=== PATIENT | male | born 1970 | race Caucasian/White ===

== ENCOUNTER 2022-05-14 17:57 | Emergency (ER) | payer OTHER, SELFPAY ==
--- OUTSIDE RECORDS SUMMARY | 2022-05-14 17:59 | XMS REPORT | Continuity of Care Document ---
:1970 Author Organization [facility] t Address [address] Ol[place] [address] [place] [id number] Care Team Providers Name Role Phone jaime Attending Clinician Unavailable jaime Admitting Clinician Unavailable Payers Payer Name Policy Type Policy Number Effective Date Expiration Date Nathan SALEH CROSS BLUE [id number] SHIELD - [facility] PPI [id number] 2015 INSURANCE COMPANY 00:00:00 - [employer] (INDEMNITY) Problems This patient has no known problems. Allergies, Adverse Reactions, Alerts Allergy Allergy Status Severity Reaction(s) Onset Inactive Treating Comm ents Source Name Type Date Date Clinician No Known MA Active UNKNOWN [facility] [place] [facility] Medications This patient has no known medications. Procedures This patient has no known procedures. Encounters Start End Encounter Admission Attending Care Care Encounter Source Date/Time Date/Time Type Type Clinicians Facility Department ID 2022-03-09 Outpatient ELROBERTOPO JOSEPO [id number] El 14:42:08 [id number] [facility] [place] [facility] 2020-07-08 2020-07-08 [facility] [id number] 02:19:00 02:19:00 [facility] Results This patient has no known results.
[2022-05-14] MEDS ORDERED: ONDANSETRON 4 MG/2 ML VIAL ONE ×2 (18:12→18:25)
[2022-05-14] MEDS ORDERED: MORPHINE 4 MG/ML SYR ONE ×3 (18:12→20:07)
[2022-05-14] MEDS ORDERED: NA CHLORIDE 0.9% 0 ML ONE (18:13)
[2022-05-14] MEDS ORDERED: NA CHLORIDE 0.9% 1,000 ML ONE (18:25)
[2022-05-14 18:29] LABS: Absolute Lymphocytes (CBC) 1.4 K/uL (0.7-4.9); Hematocrit 46.2 % (39.6-49.0); Lymphocytes % 9.6 % (15.3-44.8); MCV 103.3 fL (80-100); MPV 7.6 fL (7.6-11.3); RBC Red Blood Cell Count 4.47 M/uL (4.33-5.43)
[2022-05-14 18:36] LABS: ALT/SGPT 26 U/L (12-78); AST/SGOT 95 U/L (15-37); Alkaline Phosphatase 116 U/L (45-117); Bicarbonate 23 mmol/L (21-32); Glomerular Filtration Rate 118 ml/min (=/>90); Glucose Level 111 mg/dL (74-106); Lipase 200 U/L (73-393); Potassium 3.5 mmol/L (3.5-5.1); Protein, Total 7.5 g/dL (6.4-8.2); Sodium Level 133 mmol/L (136-145)
[2022-05-14 18:40] LABS: BUN Blood Urea Nitrogen < 3 mg/dL (7-18)
--- NOTE | 2022-05-14 19:20 | RAD REPORT ---
EXAM DESCRIPTION: CTAbdomen Pelvis W Contrast - 05/14/2022 6:54 pm CLINICAL HISTORY: Abdominal pain. abd pain COMPARISON: <Comparisons> TECHNIQUE: Biphasic CT imaging of the abdomen and pelvis was performed with 100 ml non-ionic IV cont rast. All CT scans are performed using dose optimization technique as appropriate and may include automated exposure control or mA/KV adjustment according to patient size. FINDINGS: The lung bases are clear. The liver appears enlarged with a diffuse fatty infiltration pattern present. Small supra umbilical v entral hernia is present containing fat and a small amount fluid. The liver is normal size. The pancr eas, adrenal glands and kidneys within normal limits. Mild ascites is evident. No bowel obstruction seen. No free air. The appendix is normal. No evidence of significant lymphadenopathy. No suspicious bony findings. IMPRESSION: Enlarged liver with diffuse fatty liver infiltration and heterogenous liver echotexture. Underlying hepatic dysfunction or chronic inflammation is possible. Mild ascites. Small supraumbilical ventral hernia.
--- NOTE | 2022-05-14 20:24 | RAD REPORT ---
EXAM DESCRIPTION: US - Abdomen Exam Limited - 05/14/2022 8:16 pm CLINICAL HISTORY: ABD PAIN COMPARISON: No comparisons FINDINGS: The gallbladder demonstrates no gallstones. No pericholecystic fluid or gallbladder wall t hickening. The common bile duct is normal measuring 4 mm. The liver demonstrates fatty liver. IMPRESSION: Fatty liver. Negative gallbladder/ biliary tree findings.
--- NOTE | 2022-05-14 20:53 | ER ---
Nurse's Notes [facility] Name: Omi Tyson Jr Age: 51 yrs Sex: Male : 1970 Arrival Date: 05/14/2022 Time: 18:00 Bed 18 Private MD: Diagnosis: Abdominal pain, Generalized Presentation: 05/14 18:04 Chief complaint: Patient states: lower abdominal pain for 1 week, woke up at 5am this mb8 morning c/o worsening abdominal pain, took laxatives today and had large BM. Coronavirus screen: Vaccine status: Patient reports receiving the 2nd dose of the covid vaccine. Ebola Screen: Patient negative for fever greater than or equal to 101.5 degrees Fahrenheit, and additional compatible Ebola Virus Disease symptoms Patient denies exposure to infectious person. Patient denies travel to an Ebola-affected area in the 21 days before illness onset. Initial Sepsis Screen: Does the patient meet any 2 criteria? No. Patient's initial sepsis screen is negative. Does the patient have a suspected source of infection? No. Patient's initial sepsis screen is negative. Risk Assessment: Do you want to hurt yourself or someone else? Patient reports no desire to harm self or others. 18:04 Method Of Arrival: EMS mb8 18:04 Acuity: NILTON 3 mb8 21:22 Onset of symptoms is unknown. ha1 21:22 Onset of symptoms. ha1 Triage Assessment: 18:06 General: Appears uncomfortable, Behavior is cooperative, appropriate for age, anxious. mb8 Pain: Complains of pain in abdomen Pain does not radiate. Pain currently is 8 out of 10 on a pain scale. at worst was 10 out of 10 on a pain scale. GI: Abdomen is distended, Abdomen is tender to palpation Guarding noted Reports lower abdominal pain. Historical: - Allergies: 18:05 No Known Allergies; mb8 - Immunization history:: Adult Immunizations up to date. - Social history:: Smoking status: Patient denies any tobacco usage or history of. Screenin:08 Abuse screen: Denies threats or abuse. Denies injuries from another. Nutritional mb8 screening: No deficits noted. Tuberculosis screening: No symptoms or risk factors identified. Fall Risk None identified. Assessment: 18:06 GI: Abdomen is distended, Abdomen is tender to palpation Reports lower abdominal pain. mb8 19:36 General: Appears uncomfortable, Behavior is cooperative. Pain: Complains of pain in ha1 abdomen. Neuro: Level of Consciousness is awake, alert, Oriented to person, place, time, situation. Cardiovascular: Capillary refill < 3 seconds Patient's skin is warm and dry. Respiratory: Airway is patent Trachea midline Respiratory effort is even, unlabored, Respiratory pattern is regular, symmetrical. 20:30 Reassessment: Patient and/or family updated on plan of care and expected duration. Pain ha1 level reassessed. Patient is alert, oriented x 3, equal unlabored respirations, skin warm/dry/pink. Patient states feeling better. Vital Signs: 18:04 BP 151 / 102; Pulse 91; Resp 20; Pulse Ox 97% ; Pain 8/10; mb8 18:30 BP 133 / 79; Pulse 81; Resp 18; Pulse Ox 99% ; Pain 6/10; mb8 19:35 BP 143 / 84; Pulse 93; Resp 19 S; Pulse Ox 97% on R/A; ha1 20:30 BP 126 / 95; Pulse 95; Resp 18 S; Pulse Ox 98% on R/A; ha1 ED Course: 18:00 Patient arrived in ED. eb 18:00 Yumiko Philip FNP-C is [facility]. kb 18:00 Dangelo Valenzuela MD is Attending Physician. kb 18:03 Kashif Mishra, LISE is Primary Nurse. mb8 18:05 Triage completed. mb8 18:06 Arm band placed on. mb8 18:08 Patient has correct armband on for positive identification. Bed in low position. Call mb8 light in reach. Side rails up X2. Client placed on continuous cardiac and pulse oximetry monitoring. NIBP monitoring applied. 18:08 No provider procedures requiring assistance completed. mb8 18:56 CT Abd/Pelvis - IV Contrast Only In Process Unspecified. EDMS 20:18 US Abdomen Limited In Process Unspecified. EDMS 21:22 IV discontinued, intact, bleeding controlled, No redness/swelling at site. Pressure ha1 dressing applied. Administered Medications: 18:22 Drug: NS 0.9% 1000 ml Route: IV; Rate: 1 bolus; Site: left forearm; mb8 21:23 Follow up: Response: No adverse reaction; IV Status: Completed infusion; IV Intake: ha1 500ml 18:22 Drug: Zofran (Ondansetron) 4 mg Route: IVP; Site: left forearm; mb8 18:40 Follow up: Response: No adverse reaction mb8 18:22 Drug: morphine 4 mg Route: IVP; Infused Over: 4 mins; Site: left forearm; mb8 18:40 Follow up: Response: No adverse reaction; Pain is unchanged, physician notified mb8 20:00 Drug: morphine 4 mg Route: IVP; Infused Over: 4 mins; Site: left antecubital; ha1 20:30 Follow up: Response: No adverse reaction; Pain is decreased; RASS: Alert and Calm (0) ha1 Medication: 18:07 VIS not applicable for this client. mb8 Intake: 21:23 IV: 500ml; Total: 500ml. ha1 Outcome: 20:52 Discharge ordered by . kb 21:21 Patient left the ED. ha1 21:21 Discharged to home ambulatory. ha1 21:21 Condition: stable 21:21 Discharge instructions given to patient, Instructed on discharge instructions, follow up and referral plans. Demonstrated understanding of instructions, follow-up care. Signatures: Dispatcher [employer] EDYumiko Sommer, ADVISOR CONSULTANT-C ADVISOR CONSULTANT-Ckb Rosibel Barton Heidy RN RN ha1 Kashif Mishra RN RN mb8
--- NOTE | 2022-05-14 20:53 | EDPHYS ---
Physician Documentation [facility] Name: Omi Tyson Jr Age: 51 yrs Sex: Male : 1970 Arrival Date: 05/14/2022 Time: 18:00 Bed 18 Private MD: ED Physician Dangelo Valenzuela HPI: 05/14 20:43 This 51 yrs old Male presents to ER via EMS with complaints of lower abdominal pain. kb 20:43 The patient presents with abdominal pain in the left lower quadrant. The symptoms do kb not radiate. 20:43 Onset: The symptoms/episode began/occurred 1 week(s) ago. Associated signs and kb symptoms: Pertinent positives: diarrhea. The symptoms are described as constant. Modifying factors: The symptoms are alleviated by nothing, the symptoms are aggravated by pressure. Severity of pain: At its worst the pain was moderate in the emergency department the pain is unchanged. The patient has not experienced similar symptoms in the past. The patient has not recently seen a physician. 20:44 Pt reports LLQ pain for a week. Reports diarrhea approx 45 minutes to arrival. kb Historical: - Allergies: 18:05 No Known Allergies; mb8 - Immunization history:: Adult Immunizations up to date. - Social history:: Smoking status: Patient denies any tobacco usage or history of. ROS: 20:43 Constitutional: Negative for fever, chills, and weight loss. kb 20:43 Abdomen/GI: Positive for abdominal pain, diarrhea, abdominal distension. 20:43 All other systems are negative. Exam: 20:43 Constitutional: This is a well developed, well nourished patient who is awake, alert, kb and in no acute distress. Head/Face: Normocephalic, atraumatic. ENT: Moist Mucous membranes Cardiovascular: Regular rate and rhythm with a normal S1 and S2. No gallops, murmurs, or rubs. No pulse deficits. Respiratory: Respirations even and unlabored. No increased work of breathing. Talking in full sentences Skin: Warm, dry with normal turgor. Normal color. MS/ Extremity: Pulses equal, no cyanosis. Neurovascular intact. Full, normal range of motion. Neuro: Awake and alert, GCS 15, oriented to person, place, time, and situation. Moves all extremities. Normal gait. Psych: Awake, alert, with orientation to person, place and time. Behavior, mood, and affect are within normal limits. 20:43 Abdomen/GI: Inspection: distension, that is mild, in the abdomen diffusely, Bowel sounds: normal, Palpation: soft, in all quadrants, moderate abdominal tenderness, in all quadrants. Vital Signs: 18:04 BP 151 / 102; Pulse 91; Resp 20; Pulse Ox 97% ; Pain 8/10; mb8 18:30 BP 133 / 79; Pulse 81; Resp 18; Pulse Ox 99% ; Pain 6/10; mb8 19:35 BP 143 / 84; Pulse 93; Resp 19 S; Pulse Ox 97% on R/A; ha1 20:30 BP 126 / 95; Pulse 95; Resp 18 S; Pulse Ox 98% on R/A; ha1 MDM: 18:00 Patient medically screened. kb 20:44 Data reviewed: vital signs, nurses notes. Data interpreted: Pulse oximetry: on room air kb is 97 %. Interpretation: normal. 20:51 Data reviewed: I have discussed the patient's presentation/case with the attending Emergency Department Physician;. Counseling: I had a detailed discussion with the patient and/or guardian regarding: the historical points, exam findings, and any diagnostic results supporting the discharge/admit diagnosis, lab results, radiology results, the need for outpatient follow up, a family practitioner, a diet clerk, to return to the emergency department if symptoms worsen or persist or if there are any questions or concerns that arise at home. 05/14 18:01 Order name: CBC with Diff; Complete Time: 18:31 kb 05/14 18:01 Order name: CMP; Complete Time: 18:42 kb 05/14 18:01 Order name: Lipase; Complete Time: 18:42 kb 05/14 18:01 Order name: CT Abd/Pelvis - IV Contrast Only; Complete Time: 19:29 kb 05/14 19:30 Order name: US Abdomen Limited; Complete Time: 20:28 kb 05/14 18:01 Order name: IV Saline Lock; Complete Time: 18:13 kb 05/14 18:01 Order name: Labs collected and sent; Complete Time: 18:13 kb Administered Medications: 18:22 Drug: NS 0.9% 1000 ml Route: IV; Rate: 1 bolus; Site: left forearm; mb8 21:23 Follow up: Response: No adverse reaction; IV Status: Completed infusion; IV Intake: ha1 500ml 18:22 Drug: Zofran (Ondansetron) 4 mg Route: IVP; Site: left forearm; mb8 18:40 Follow up: Response: No adverse reaction 8 18:22 Drug: morphine 4 mg Route: IVP; Infused Over: 4 mins; Site: left forearm; mb8 18:40 Follow up: Response: No adverse reaction; Pain is unchanged, physician notified mb8 20:00 Drug: morphine 4 mg Route: IVP; Infused Over: 4 mins; Site: left antecubital; ha1 20:30 Follow up: Response: No adverse reaction; Pain is decreased; RASS: Alert and Calm (0) ha1 Disposition: 05/15 07:03 Co-signature as Attending Physician, Dangelo Valenzuela MD. rn Disposition Summary: 05/14/22 20:52 Discharge Ordered Location: Home kb Condition: Stable kb Diagnosis - Abdominal pain, Generalized kb Followup: kb - With: Emergency Department - When: As needed - Reason: Worsening of condition Followup: kb - With: Private Physician - When: 2 - 3 days - Reason: Recheck today's complaints, Continuance of care, Re-evaluation by your physician Discharge Instructions: - Discharge Summary Sheet kb - Abdominal Pain, Adult, [id number] kb Forms: - Medication Reconciliation Form kb - Thank You Letter kb - Antibiotic Education kb - Prescription Opioid Use kb Signatures: Dispatcher [employer] Yumiko Rojas, DESIGN MAINTENANCE ENGINEER-C DESIGN MAINTENANCE ENGINEER-Dangelo Davila MD MD rn Ayala, Heidy RN RN ha1 Kashif Mishra RN RN mb8
[2022-05-16 07:56] VITALS: BP 126/95; O2SAT 98
== END 2022-05-14 21:21 | disposition home or self-care (01) ==
LOC: ER 17:57
DX: R10.84 Generalized abdominal pain (principal)
CPT/HCPCS: 36415; 74177; 76705; 80053; 83690; 85025; 99284; J2405; J7030; Q9967

== ENCOUNTER 2022-05-17 12:22 | Observation (INO) | payer SELFPAY ==
--- OUTSIDE RECORDS SUMMARY | 2022-05-17 12:35 | XMS REPORT | Continuity of Care Document ---
:1970 Author Organization [facility] Address [address] [place] [address] [place] [id number] Care Team Providers Name Role Phone jaime Attending Clinician Unavailable jaime Admitting Clinician Unavailable Payers Payer Name Policy Type Policy Number Effective Date Expiration Date Nathan SALEH CROSS DELFINO [id number] SHIELD - [facility] [id number] 2015 INSURANCE COMPANY 00:00:00 - [employer] (INDEMNITY) Problems This patient has no known problems. Allergies, Adverse Reactions, Alerts Allergy Allergy Status Severity Reaction(s) Onset Inactive Treating Comm ents Source Name Type Date Date Clinician No Known MA Active UNKNOWN El [facility] [place] [facility] Medications This patient has no known medications. Procedures This patient has no known procedures. Encounters Start End Encounter Admission Attending Care Care Encounter Source Date/Time Date/Time Type Type Clinicians Facility Department ID 2022-03-09 Outpatient ELROBERTOPO ALMAS [id number] El 14:42:08 [id number] [place] [facility] 2020-07-08 2020-07-08 Outpatient jaime [facility] [id number] 02:19:00 02:19:00 [facility] Results This patient has no known results.
[2022-05-17 13:42] LABS: Absolute Lymphocytes (CBC) 1.2 K/uL (0.7-4.9); Hematocrit 49.1 % (39.6-49.0); Lymphocytes % 11.3 % (15.3-44.8); MCV 103.6 fL (80-100); MPV 7.5 fL (7.6-11.3); RBC Red Blood Cell Count 4.74 M/uL (4.33-5.43)
[2022-05-17 13:49] LABS: Urine Blood Negative (Negative); Urine Glucose Negative (Negative); Urine Protein Trace (Negative)
[2022-05-17 13:50] LABS: Protime INR 1.38
[2022-05-17 13:53] LABS: SARS-CoV-2 Antigen Rapid Res Negative (Negative)
[2022-05-17] MEDS ORDERED: ONDANSETRON 4 MG/2 ML VIAL ONE (13:59)
[2022-05-17] MEDS ORDERED: METRONIDAZOLE 500mg IVPB 500 MG/100 ML BAG IV ONE (13:59)
[2022-05-17] MEDS ORDERED: MORPHINE 4 MG/ML SYR ONE (13:59)
[2022-05-17] MEDS ORDERED: Levofloxacin 750mg IV 750 MG/150 ML BAG IV ONE (13:59)
[2022-05-17] MEDS ORDERED: NA CHLORIDE 0.9% 1,000 ML ONE (14:00)
[2022-05-17 14:08] LABS: Bilirubin Direct 0.7 mg/dL (0-0.2); Bilirubin Total 1.7 mg/dL (0.2-1.0); Potassium 3.6 mmol/L (3.5-5.1); Protein, Total 7.6 g/dL (6.4-8.2); Troponin High Sensitivity 4.4 pg/mL (<58.9)
--- NOTE | 2022-05-17 14:39 | RAD REPORT ---
EXAM DESCRIPTION: CT - Abdomen Pelvis W Contrast - 05/17/2022 2:14 pm CLINICAL HISTORY: Abdominal pain/left upper quadrant pain COMPARISON: May 14, 2022 TECHNIQUE: Computed axial tomography of the abdomen pelvis was obtained. 100 cc Isovue-300 was admin istered intravenously. Oral contrast was not requested which limits evaluation of bowel and appendix All CT scans are performed using dose optimization technique as appropriate and may include automated exposure control or mA/KV adjustment according to patient size. FINDINGS: Liver is mildly enlarged. It contains heterogeneous low density areas throughout. Spleen is borderline enlarged. The pancreas, adrenals and kidneys are unremarkable. Small to moderate ventral hernia mid abdomen. Small umbilical hernia. There is no evidence of diverticulitis. Normal appendix Small amount of ascites abdomen. Small to moderate amount of ascites pelvis. 3 x 1.5 centimeter perirectal abscess IMPRESSION: 3 x 1.5 centimeter perirectal abscess Mild hepatomegaly. Heterogeneous low densities may all represent fatty infiltration. Superimposed inf lammation is another consideration
--- NOTE | 2022-05-17 14:59 | ER ---
Nurse's Notes [facility] Name: Omi Tyson Jr Age: 51 yrs Sex: Male : 1970 Arrival Date: 05/17/2022 Time: 12:24 Bed 25 Private MD: Diagnosis: Anorectal abscess-WITH BUTTOCK RIGHT , CELLULITIS Presentation: 05/17 12:42 Chief complaint: Patient states: "I have an abscess on my rectum and it's hurting". aa5 Coronavirus screen: At this time, the client does not indicate any symptoms associated with coronavirus-19. Ebola Screen: Patient denies travel to an Ebola-affected area in the 21 days before illness onset. Initial Sepsis Screen: Does the patient meet any 2 criteria? No. Patient's initial sepsis screen is negative. Does the patient have a suspected source of infection? No. Patient's initial sepsis screen is negative. Risk Assessment: Do you want to hurt yourself or someone else? Patient reports no desire to harm self or others. Onset of symptoms was April 2022. 12:42 Acuity: NILTON 3 aa5 12:42 Method Of Arrival: Ambulatory aa5 Triage Assessment: 13:39 General: Appears in no apparent distress. Behavior is calm, cooperative, appropriate jh5 for age. Pain: Complains of pain in buttocks. Historical: - Allergies: 12:41 No Known Allergies; aa5 - Home Meds: 12:41 None [Active]; aa5 - PMHx: 12:41 None; aa5 - PSHx: 12:41 Left knee; aa5 - Immunization history:: Adult Immunizations unknown. - Social history:: Smoking status: Patient reports the use of cigarette tobacco products, smokes one-half pack cigarettes per day. - Family history:: not pertinent. Screenin:39 Abuse screen: Denies threats or abuse. Denies injuries from another. Nutritional jh5 screening: No deficits noted. Tuberculosis screening: No symptoms or risk factors identified. Fall Risk None identified. Assessment: 14:13 Reassessment: Pt refused Chest Xray; states he was here 2 days ago and is here for a jh5 rectal abscess. Vital Signs: 12:42 BP 137 / 87; Pulse 77; Resp 18 S; Temp 98.4(TE); Pulse Ox 100% on R/A; Weight 81.65 kg 5 (R); Height 5 ft. 11 in. (180.34 cm) (R); 14:36 BP 131 / 80; Pulse 71; Resp 18; Pulse Ox 100% ; jh5 12:42 Body Mass Index 25.10 (81.65 kg, 180.34 cm) [facility] ED Course: 12:24 Patient arrived in ED. mr 12:41 Arm band placed on. 5 12:43 Triage completed. [facility] 12:53 Mayco Hathaway MD is Attending Physician. [facility] 12:55 Roma Diaz, LISE is Primary Nurse. [facility] 13:34 Initial lab(s) drawn, by wv, sent to lab. COVID swab sent to lab. Inserted saline lock: tm3 20 gauge in left antecubital area, using aseptic technique. 13:39 Patient has correct armband on for positive identification. [facility] 13:39 No provider procedures requiring assistance completed. [facility] 13:48 Urine collected: clean catch specimen, cloudy. [facility] 14:16 CT Abd/Pelvis - IV Contrast Only In Process Unspecified. EDFL 14:55 Harrisno Ramírez MD is Hospitalizing Provider. tiffanie Administered Medications: 13:00 Drug: NS 0.9% 1000 ml Route: IV; Rate: 1 bolus; Site: left antecubital; [facility] 16:47 Follow up: IV Status: Completed infusion [facility] 13:00 Drug: morphine 4 mg Route: IVP; Infused Over: 4 mins; Site: left antecubital; [facility] 13:00 Drug: Zofran (Ondansetron) 4 mg Route: IVP; Site: left antecubital; [facility] 15:41 Drug: levofloxacin 750 mg Volume: 150 ml; Route: IVPB; Infused Over: 90 mins; Site: [facility] left antecubital; 16:46 Follow up: IV Status: Completed infusion [facility] 15:41 Drug: Flagyl (metroNIDAZOLE) 500 mg Volume: 100 ml; Route: IVPB; Rate: 200 ml/hr; [facility] Infused Over: 30 mins; Site: left antecubital; 15:49 Follow up: IV Status: Completed infusion [facility] Medication: 14:14 VIS not applicable for this client. [facility] Outcome: 14:57 Decision to Hospitalize by Provider. [facility] 16:48 Patient left the ED. [facility] Signatures: Dispatcher [employer] EDBoone Bailey tm3 Mayco Hathaway MD MD cha Rivera Nelli mr Radha Jones RN RN aa5 Roma Diaz RN RN jh5 Corrections: (The following items were deleted from the chart) 12: Allergies: No Known Allergies; aa5 aa5 12: PSHx: None; aa5 aa5 12: Allergies: Tetanus Vaccines \\T\\ Toxoid; aa5 aa5
--- NOTE | 2022-05-17 14:59 | EDPHYS ---
Physician Documentation [facility] Name: Omi Tyson Jr Age: 51 yrs Sex: Male : 1970 Arrival Date: 05/17/2022 Time: 12:24 Bed 25 Private MD: ED Physician Mayco Hathaway HPI: 05/17 14:49 This 51 yrs old Male presents to ER via Ambulatory with complaints of Abscess.tiffanie 14:49 The patient presents with an abscess of the gluteal cleft, The patient presents with tiffanie cellulitis of the buttocks. Description: The affected area is small, moderate sized, localized, erythematous, fluctuant, pointed, swollen. Onset: The symptoms/episode began/occurred 5 day(s) ago. Possible cause(s): animal bite. Associated signs and symptoms: Pertinent positives: erythema, swelling. Modifying factors: the symptoms are alleviated by remaining still, the symptoms are aggravated by pressure, sitting, squeezing the lesion and expressing the contents. Severity of symptoms: At their worst the symptoms were mild, moderate, in the emergency department the symptoms are unchanged. The patient has not experienced similar symptoms in the past. Historical: - Allergies: 12:41 No Known Allergies; aa5 - Home Meds: 12:41 None [Active]; aa5 - PMHx: 12:41 None; aa5 - PSHx: 12:41 Left knee; aa5 - Immunization history:: Adult Immunizations unknown. - Social history:: Smoking status: Patient reports the use of cigarette tobacco products, smokes one-half pack cigarettes per day. - Family history:: not pertinent. ROS: 14:49 Constitutional: Negative for fever, chills, and weight loss, Eyes: Negative for injury, tiffanie pain, redness, and discharge, ENT: Negative for injury, pain, and discharge, Neck: Negative for injury, pain, and swelling, Cardiovascular: Negative for chest pain, palpitations, and edema, Respiratory: Negative for shortness of breath, cough, wheezing, and pleuritic chest pain, Abdomen/GI: Negative for abdominal pain, nausea, vomiting, diarrhea, and constipation, Back: Negative for injury and pain, : Negative for injury, bleeding, discharge, and swelling, MS/Extremity: Negative for injury and deformity, Neuro: Negative for headache, weakness, numbness, tingling, and seizure, Psych: Negative for depression, anxiety, suicide ideation, homicidal ideation, and hallucinations, Allergy/Immunology: Negative for hives, rash, and allergies, Endocrine: Negative for neck swelling, polydipsia, polyuria, polyphagia, and marked weight changes, Hematologic/Lymphatic: Negative for swollen nodes, abnormal bleeding, and unusual bruising. 14:49 Skin: Positive for erythema, swelling, of the gluteal cleft and right gluteus malini. Exam: 14:49 Constitutional: This is a well developed, well nourished patient who is awake, alert, tiffanie and in no acute distress. Head/Face: Normocephalic, atraumatic. Eyes: Pupils equal round and reactive to light, extra-ocular motions intact. Lids and lashes normal. Conjunctiva and sclera are non-icteric and not injected. Cornea within normal limits. Periorbital areas with no swelling, redness, or edema. ENT: Nares patent. No nasal discharge, no septal abnormalities noted. Tympanic membranes are normal and external auditory canals are clear. Oropharynx with no redness, swelling, or masses, exudates, or evidence of obstruction, uvula midline. Mucous membranes moist. Neck: Trachea midline, no thyromegaly or masses palpated, and no cervical lymphadenopathy. Supple, full range of motion without nuchal rigidity, or vertebral point tenderness. No Meningismus. Chest/axilla: Normal chest wall appearance and motion. Nontender with no deformity. No lesions are appreciated. Cardiovascular: Regular rate and rhythm with a normal S1 and S2. No gallops, murmurs, or rubs. Normal PMI, no JVD. No pulse deficits. Respiratory: Lungs have equal breath sounds bilaterally, clear to auscultation and percussion. No rales, rhonchi or wheezes noted. No increased work of breathing, no retractions or nasal flaring. Abdomen/GI: Soft, non-tender, with normal bowel sounds. No distension or tympany. No guarding or rebound. No evidence of tenderness throughout. Back: No spinal tenderness. No costovertebral tenderness. Full range of motion. Male : Normal genitalia with no discharge or lesions. MS/ Extremity: Pulses equal, no cyanosis. Neurovascular intact. Full, normal range of motion. Neuro: Awake and alert, GCS 15, oriented to person, place, time, and situation. Cranial nerves II-XII grossly intact. Motor strength 5/5 in all extremities. Sensory grossly intact. Cerebellar exam normal. Normal gait. Psych: Awake, alert, with orientation to person, place and time. Behavior, mood, and affect are within normal limits. 14:49 Skin: abscess, that is small, that is moderate sized, of the gluteal cleft and right gluteus malini, with fluctuance, that is moderate, with induration, cellulitis, that is mild, that is moderate, induration, that is moderate is noted. 15:07 ECG was reviewed by the Attending Physician. [facility] Vital Signs: 12:42 BP 137 / 87; Pulse 77; Resp 18 S; Temp 98.4(TE); Pulse Ox 100% on R/A; Weight 81.65 kg aa5 (R); Height 5 ft. 11 in. (180.34 cm) (R); 14:36 BP 131 / 80; Pulse 71; Resp 18; Pulse Ox 100% ; jh5 12:42 Body Mass Index 25.10 (81.65 kg, 180.34 cm) aa5 MDM: 12:53 Patient medically screened. [facility] 15:07 Differential diagnosis: abscess, cellulitis. Data reviewed: vital signs, nurses notes, [facility] lab test result(s), EKG, radiologic studies, CT scan, plain films. Data interpreted: site monitor: not applicable for this patient encounter. rate is 71 beats/min, rhythm is regular, Pulse oximetry: on room air is 100 %. Test interpretation: by ED physician or midlevel provider: ECG, plain radiologic studies. Counseling: I had a detailed discussion with the patient and/or guardian regarding: the historical points, exam findings, and any diagnostic results supporting the discharge/admit diagnosis, lab results, radiology results, the need for further work-up and treatment in the hospital. 05/17 12:57 Order name: Basic Metabolic Panel; Complete Time: 14:49 [facility] 05/17 12:57 Order name: CBC with Diff; Complete Time: 14:49 [facility] 05/17 12:57 Order name: LFT's; Complete Time: 14:49 [facility] 05/17 12:57 Order name: Magnesium; Complete Time: 14:49 [facility] 05/17 12:57 Order name: NT PRO-BNP; Complete Time: 14:49 [facility] 05/17 12:57 Order name: PT-INR; Complete Time: 14:49 [facility] 05/17 12:57 Order name: Troponin HS; Complete Time: 14:49 [facility] 05/17 12:57 Order name: Lipase; Complete Time: 14:49 [facility] 05/17 12:57 Order name: CT Abd/Pelvis - IV Contrast Only; Complete Time: 14:49 [facility] 05/17 12:57 Order name: SARS RAPID; Complete Time: 14:49 [facility] 05/17 13:50 Order name: Urine Dipstick-Ancillary; Complete Time: 14:49 EDMS 05/17 12:57 Order name: EKG; Complete Time: 12:58 [facility] 05/17 12:57 Order name: Cardiac monitoring; Complete Time: 13:17 [facility] 05/17 12:57 Order name: EKG - Nurse/Tech; Complete Time: 13:31 [facility] 05/17 12:57 Order name: IV Saline Lock; Complete Time: 13:17 [facility] 05/17 12:57 Order name: Labs collected and sent; Complete Time: 13:17 [facility] 05/17 12:57 Order name: O2 Per Protocol; Complete Time: 13:49 [facility] 05/17 12:57 Order name: O2 Sat Monitoring; Complete Time: 13:17 [facility] 05/17 12:57 Order name: Urine Dipstick-Ancillary (obtain specimen); Complete Time: 13:49 [facility] EC:07 Rate is 76 beats/min. Rhythm is regular. QRS [place] is Normal. MO interval is normal. QRS tiffanie interval is normal. QT interval is normal. No Q waves. T waves are Normal. No ST changes noted. Clinical impression: Normal ECG and No evidence of ischemia. Interpreted by me. Reviewed by me. Administered Medications: 13:00 Drug: NS 0.9% 1000 ml Route: IV; Rate: 1 bolus; Site: left antecubital; [facility] 16:47 Follow up: IV Status: Completed infusion [facility] 13:00 Drug: morphine 4 mg Route: IVP; Infused Over: 4 mins; Site: left antecubital; [facility] 13:00 Drug: Zofran (Ondansetron) 4 mg Route: IVP; Site: left antecubital; [facility] 15:41 Drug: levofloxacin 750 mg Volume: 150 ml; Route: IVPB; Infused Over: 90 mins; Site: [facility] left antecubital; 16:46 Follow up: IV Status: Completed infusion jh5 15:41 Drug: Flagyl (metroNIDAZOLE) 500 mg Volume: 100 ml; Route: IVPB; Rate: 200 ml/hr; jh5 Infused Over: 30 mins; Site: left antecubital; 15:49 Follow up: IV Status: Completed infusion jh5 Disposition Summary: 05/17/22 14:57 Hospitalization Ordered Hospitalization Status: Observation tiffanie Provider: Harrison Ramírez cha Location: Telemetry/MedSurg (observation) tiffanie Condition: Fair tiffanie Problem: new tiffanie Symptoms: have improved tiffanie Bed/Room Type: Standard tiffanie Room Assignment: 418(05/17/22 15:20) bd Diagnosis - Anorectal abscess - WITH BUTTOCK RIGHT , CELLULITIS tiffanie Forms: - Medication Reconciliation Form tiffanie - SBAR form tiffanie Signatures: Dispatcher [employer] EDLaura Michael Corey, MD MD cha Calderon, Audri, RN RN aa5 Roma Diaz RN RN jh5 Corrections: (The following items were deleted from the chart) 12:41 12:41 Allergies: No Known Allergies; aa5 aa5 12:41 12:41 PSHx: None; aa5 aa5 12:41 12:41 Allergies: Tetanus Vaccines \T\ Toxoid; aa5 aa5 14:12 12:58 Chest Single View+RAD.RAD.BRZ ordered. EDMS EDMS 15:20 14:57 tiffanie bd
[2022-05-17 16:58] VITALS: BMI 25.1
[2022-05-17] MEDS ORDERED: ONDANSETRON 4 MG/2 ML VIAL IV PRN (16:58)
[2022-05-17] MEDS ORDERED: ACETAMINOPHEN 325 MG TABLET PO PRN (17:14)
[2022-05-17] MEDS: NA CHLORIDE 0.9% 1,000 ML IV SCH (17:22)
[2022-05-17] MEDS: METRONIDAZOLE 500mg IVPB 500 MG/100 ML BAG IV SCH (17:23)
[2022-05-17] MEDS: MORPHINE 4 MG/ML SYR IV PRN ×2 (17:27→21:06)
[2022-05-17] MEDS ORDERED: Levofloxacin 750mg IV 750 MG/150 ML BAG IV SCH (18:00)
[2022-05-18] MEDS: METRONIDAZOLE 500mg IVPB 500 MG/100 ML BAG IV SCH ×2 (01:02→05:28)
[2022-05-18] MEDS: MORPHINE 4 MG/ML SYR IV PRN ×2 (01:09→05:27)
[2022-05-18] MEDS: NA CHLORIDE 0.9% 1,000 ML IV SCH (01:10)
[2022-05-18 05:41] LABS: Absolute Lymphocytes (CBC) 1.6 K/uL (0.7-4.9); Hematocrit 41.3 % (39.6-49.0); Lymphocytes % 14.5 % (15.3-44.8); MCV 104.4 fL (80-100); MPV 7.7 fL (7.6-11.3); RBC Red Blood Cell Count 3.96 M/uL (4.33-5.43)
[2022-05-18 05:57] LABS: Bicarbonate 27 mmol/L (21-32); Glomerular Filtration Rate 121 ml/min (=/>90); Glucose Level 95 mg/dL (74-106); Potassium 3.8 mmol/L (3.5-5.1); Sodium Level 137 mmol/L (136-145)
[2022-05-18 05:58] LABS: BUN Blood Urea Nitrogen < 3 mg/dL (7-18)
[2022-05-18] MEDS ORDERED: Ringers Lactate 1,000 ML IV ONE (08:50)
[2022-05-18] MEDS: FENTANYL CITR 100 MCG/2 ML ONE ×2 (09:36→09:49)
[2022-05-18] MEDS ORDERED: MIDAZOLAM HCL 2 MG/2 ML INJ ONE (09:45)
[2022-05-18] MEDS ORDERED: propofoL 200 MG/20 ML VIAL IV ONE (09:46)
[2022-05-18] MEDS ORDERED: KETOROLAC 30 MG/ML INJ ONE (09:46)
[2022-05-18] MEDS ORDERED: dexAMETHasone 10 MG/ML VIAL ONE (09:49)
[2022-05-18] MEDS ORDERED: BUPIVACAINE 0.5% PF 10 ML VIAL ONE (09:55)
--- NOTE | 2022-05-18 10:37 | P.BOP ---
Preoperative diagnosis: perirectal abscess, perianal pain Postoperative diagnosis: same Primary procedure: EUA, anoscopy, rigid proctoscopy, I&D perirectal abscess Estimated blood loss: <10cc Specimen: pus Findings: see dicta Anesthesia: General Complications: None Transferred to: Recovery Room Condition: Good
[2022-05-18] MEDS ORDERED: HYDROCODONE/APAP 5/325 MG TAB PO PRN (10:38)
[2022-05-18 11:06] VITALS: TEMP 97.9; O2SAT 98
[2022-05-18 12:44] VITALS: BP 120/72
--- NOTE | 2022-05-18 13:08 | EKG ---
Test Date: 2022-05-17 Test Time: 13:26:25 [employer] Adviser: MEASUREMENT RESULTS: Intervals: Rate: 76 NC: 156 QRSD: 80 QT: 386 QTc: 434 [place]: P: 44 NC: 156 QRS: 32 T: 19 INTERPRETIVE STATEMENTS: Normal sinus rhythm Normal ECG Compared to ECG 09/29/2016 12:40:49 No significant changes Electronically Signed On 05-18-22 13:05:25 CDT by Martir Alejandro
[2022-05-18] MEDS ORDERED: Levofloxacin 750mg IV 750 MG/150 ML BAG IV SCH (14:00)
[2022-05-18] MEDS ORDERED: METRONIDAZOLE 500mg IVPB 500 MG/100 ML BAG IV SCH (14:00)
--- NOTE | 2022-05-18 14:55 | OP ---
Date of Procedure: 05/18/2022 Surgeon: Harrison Ramírez MD Preoperative Diagnosis: Perianal/perirectal abscess with perianal tenderness. Postoperative Diagnosis: Perianal/perirectal abscess with perianal tenderness. Procedures: Examination under anesthesia, anoscopy, proctoscopy, incision and drainage of perirectal abscess. Anesthesia: General plus local. Complications: None. Packing: Nu Gauze quarter of an inch. Indication: This is the case of a male, who comes to us with perianal tenderness. The patient diagn osed with perianal and perirectal abscess on physical exam and also an imaging. So, we offered him i ncision and drainage of perianal/perirectal abscess with benefits, alternatives, and risks also expla ined for EUA, anoscopy, and proctoscopy, which include, but not limited to infection, bleeding, damag e to adjacent structures, anesthesia complication, recurrence, FL and even . He also understand s this may not relieve any symptoms. He might need more than one surgical intervention and he may re quire also wound care. He also understands that this is not replacement for colonoscopy. He should find with his primary doctor when was his last colonoscopy already and if not, proceed once this area healed. He understood. Procedure In Detail: The patient was brought to the operating room, placed in supine position. Anes thesia was done without complication. The patient was placed in lithotomy position with proper prote ction. The perianal area was prepped and draped in the usual sterile fashion. Rectal examination wa s done followed by rigid proctoscopy all the way to about 13 cm. We cannot pass anymore due to the l arge amount of stool present, and that area revealed internal and external hemorrhoids and also a per ianal abscess going into the perirectal region as described on the CAT scan. After that, I placed an anoscope with a window on the side to once again have a good visualization of that area. That helpe d me to make an incision in the perianal region going down into the rectum. Once we opened the locul ations, we have a lot of pus obtained from that region. Rectum seems to be intact. The rectal wall seems to be intact. Soft irrigation and hemostasis were obtained. We proceeded to pack the area all the way down into the area of the perirectal region. The patient tolerated the procedure well. Loc al anesthesia was applied. Hemostasis was obtained. Culture was sent to the pathologist. The patie nt was sent to recovery in stable condition. TEJAS/STEVE Voice ID: [id number] Report ID: [id number]
--- NOTE | 2022-05-18 15:01 | DS ---
Date of Discharge: 05/18/2022 Diagnosis: Perirectal abscess. Procedures: EUA, anoscopy, proctoscopy, incision and drainage of perirectal abscess. Disposition: Home if he tolerates diet. Plan: Follow up in my office tomorrow morning so we can help him to do dressing changes. He does no t want to stay here tonight. He has some cats that he has to take care of. He is the only person wh o can take care of that and I do understand, but I asked him to please show up in my office tomorrow morning, so I can teach him how to do dressing changes. We are going to send him home with antibioti cs and pain medications. He was advised the pros and cons of that. DERIC Voice ID: [id number] Report ID: [id number]
--- NOTE | 2022-05-18 18:31 | HP ---
Date of Admission: 05/17/2022 Reason For Service: Perianal, perirectal abscess. History Of Present Illness: This is the case of a 51-year-old patient who comes to us complaining of 5-day history of perianal and buttock pain. Patient was seen in the ER and seen with a perianal abs cess. CAT scan was done, found to have a perianal/perirectal abscess and a surgical consult was obta ined for admission, pain control, antibiotics and drainage of abscess. He denies any trauma, any dys uria, hematuria, hematochezia, or melena and denies any previous colonoscopy. He was advised the imp ortance of them. He is going to review with his primary doctor. Allergies: NONE. Past Medical History: None. Medications: None. Past Surgical History: Left knee surgery. Social History: He is saying that he is smoking half a pack a day. He was counseled the importance of the smoking cessation. He does not drink alcohol. Review of Systems: See H and P. Ten points, otherwise, unremarkable. No dysuria, hematuria, hematochezia, or melena. Physical Examination: General: Patient is awake and alert. Eyes: Pupils are equal and reactive. Anicteric. Neck: Supple. Chest: Clear. Heart: S1, S2. Abdomen: Soft and depressible. Extremities: Good capillary refill. Rectal: Perianal region shows tenderness in the perianal area. There is a bulge in that region. Th ere is fluctuance present consistent with an abscess. Neurologic: Cranial nerves 2 through 12 grossly within normal limits. Laboratory Data: Blood work shows WBC count of 10, with hemoglobin of 17, and platelets of 129. INR is 1.38, potassium 3.6, total bilirubin of 1.7. AST of 76, ALT 24. CAT scan of the abdomen and pel vis interpreted by Dr. Piña as a perirectal, perianal abscess. Assessment: This is a 51-year-old patient with perianal, perirectal abscess, perianal pain. Patient admitted to the hospital for IV antibiotics and bowel rest, and incision and possible drainage of pe rianal/perirectal abscess were fully explained to the patient which include, but not limited to, infe ction, bleeding, damage to adjacent structures, anesthesia complication, bowel perforation, anal stri cture and incontinence, recurrence, OR, and even . He also understands this may not relieve any symptoms. He might need more than one surgical intervention. He understand most likely he will req uire a wound care. He signed a consent and the patient was immediately booked in the OR. DERIC Voice ID: [id number]
== END 2022-05-18 13:20 | disposition home or self-care (01) ==
LOC: ER 12:22 → ERHOLD 14:59 → 4TH 16:43
PROVIDERS: ADMIT Surgery; ATTEND Surgery
PROC: 0D9Q7ZX Drainage of Anus, Via Natural or Artificial Opening, Diagnostic (ICD-10-PCS; 2022-05-18)
PROC: 0DJD8ZZ Inspection of Lower Intestinal Tract, Via Natural or Artificial Opening Endoscopic (ICD-10-PCS; principal; 2022-05-18 10:00)
DX: K61.2 Anorectal abscess (principal); K64.4 Residual hemorrhoidal skin tags; K64.8 Other hemorrhoids; F17.210 Nicotine dependence, cigarettes, uncomplicated; L03.317 Cellulitis of buttock; Z71.6 Tobacco abuse counseling; K62.89 Other specified diseases of anus and rectum; Z20.822 Contact with and (suspected) exposure to COVID-19
CPT/HCPCS: 36415; 74177; 80048; 80076; 81003; 83690; 83735; 83880; 84484; 85025; 85610; 87070; 87075; 87077; 87186; 87205; 87811; 93005; 96361; 96365; 96375; 99284; G0378; J1100; J2250; J2405; J2704; J3010; J7030; J7120; Q9967

== ENCOUNTER 2023-10-03 19:33 | Inpatient (IN) | payer SELFPAY ==
[2023-10-03] MEDS ORDERED: METOCLOPRAMIDE 10 MG/2mL INJ ONE (20:25)
[2023-10-03] MEDS ORDERED: PANTOPRAZOLE 40 MG INJ ONE (20:25)
[2023-10-03] MEDS ORDERED: NA CHLORIDE 0.9% 250 ML ONE (20:26)
[2023-10-03 21:17] LABS: Albumin 2.8 g/dL (3.4-5.0); Bilirubin Total 5.4 mg/dL (0.2-1.0); Potassium 4.3 mEq/L (3.5-5.1); Protein, Total 6.9 g/dL (6.4-8.2)
[2023-10-03 21:22] LABS: Protime INR 1.92
[2023-10-03 21:36] LABS: Absolute Lymphocytes (CBC) 0.9 K/uL (0.7-4.9); Hematocrit 29.4 % (39.6-49.0); Lymphocytes % 10.3 % (15.3-44.8); MCV 103.5 fL (80-100); MPV 7.7 fL (7.6-11.3); Platelets 112 thou/uL (152-406); RBC Red Blood Cell Count 2.84 M/uL (4.33-5.43)
--- NOTE | 2023-10-03 22:34 | ER ---
Nurse's Notes [facility] Name: Omi Tyson Jr Age: 53 yrs Sex: Male : 1970 Arrival Date: 10/03/2023 Time: 19:41 Bed 15 Private MD: Diagnosis: GI Bleed/ Gastrointestinal hemorrhage, unspecified;Upper gastrointestinal bleed, syncopal episode Presentation: 10/03 19:55 Chief complaint: Spouse and/or significant other states: "Found him in the bathtub jw7 passed out, he was going to the bathroom and fell over on his left side, stood back up and then fell again into the bathtub. He was just here in the hospital for an abscess to the left side of his face and was given Clindamycin for the infection. He took his first Clindamycin pill around 1500 and has since had black tarry stools. He also threw-up when we got home after receiving the contrast dye for his CT scan". Coronavirus screen: At this time, the client does not indicate any symptoms associated with coronavirus-19. Ebola Screen: No symptoms or risks identified at this time. Initial Sepsis Screen: Does the patient meet any 2 criteria? No. Patient's initial sepsis screen is negative. Does the patient have a suspected source of infection? No. Patient's initial sepsis screen is negative. Risk Assessment: Do you want to hurt yourself or someone else? Patient reports no desire to harm self or others. Onset of symptoms was October 03, 2023 at 15:00. 19:55 Method Of Arrival: EMS: [facility] 19:55 Acuity: NILTON 2 jw7 Triage Assessment: 19:50 General: Appears in no apparent distress. uncomfortable, ill, Behavior is calm, jw7 cooperative, drowsy, flat, quiet. Pain: Complains of pain in left jaw Pain does not radiate. Pain currently is 5 out of 10 on a pain scale. Quality of pain is described as aching, Pain began 1 day ago. Is continuous. EENT: No deficits noted. No signs and/or symptoms were reported regarding the EENT system. Neuro: Level of Consciousness is awake, alert, obeys commands, lethargic, Oriented to person, place, time, situation, Reports a syncopal episode. Cardiovascular: Heart tones S1 S2 present Capillary refill < 3 seconds Clubbing of nail beds is absent JVD is absent Patient's skin is warm and dry. Respiratory: Airway is patent Trachea midline Respiratory effort is even, unlabored, shallow, Respiratory pattern is regular, symmetrical. GI: Abdomen is flat, non-distended, Rectal exam: Deferred to physician Stools are reported to be black, tarry. Last BM was October 03, 2023. Bowel sounds present X 4 quads. Reports bloody stool. : No deficits noted. No signs and/or symptoms were reported regarding the genitourinary system. Derm: Skin is intact, is healthy with good turgor, Skin is dry, Skin is pale, Skin temperature is warm. Musculoskeletal: Circulation, motion, and sensation intact. Range of motion: intact in all extremities. Historical: - Allergies: 20:01 NKDA; jw7 - Home Meds: 20:01 clindamycin HCl 300 mg oral capsule [Active]; jw7 - PSHx: 20:01 left knee; jw7 - Immunization history:: Adult Immunizations up to date, Client reports receiving the 2nd dose of the Covid vaccine, Last tetanus immunization: < 10 years ago Flu vaccine is not up to date. - Social history:: Smoking status: Patient reports the use of cigarette tobacco products, smokes one-half pack cigarettes per day, Patient uses alcohol, on a daily basis. Patient/guardian denies using street drugs, IV drugs. - Family history:: not pertinent. Screenin:55 Abuse screen: Denies threats or abuse. Denies injuries from another. jw7 19:55 [facility] ED Fall Risk Assessment (Adult) History of falling in the last 3 months, jw7 including since admission Yes- single mechanical fall (1 pt) Confusion or Disorientation No (0 pts) Intoxicated or Sedated Yes (3 pts) Impaired Gait Yes (1 pt) Mobility Assist Device Used No (0 pt) Altered Elimination Yes (1 pt) Score/Fall Risk Level 3 or more points = High Risk Oriented to surroundings, Maintained a safe environment, Educated pt \\T\\ family on fall prevention, incl call for assistance when getting out of bed, Assessed \\T\\ reinforced patient's understanding of fall precautions, Provided non-skid footwear. Nutritional screening: No deficits noted. Tuberculosis screening: No symptoms or risk factors identified. Assessment: 19:55 General: See Triage Assessment. jw7 20:00 Neuro: Level of Consciousness is awake, obeys commands, lethargic, Oriented to person, jw7 place, time, situation. Cardiovascular: Heart tones S1 S2 present Capillary refill < 3 seconds Patient's skin is warm and dry. Rhythm is sinus rhythm. 21:00 Reassessment: Patient appears in no apparent distress at this time. No changes from jw7 previously documented assessment. Patient and/or family updated on plan of care and expected duration. Pain level reassessed. Patient is alert, oriented x 3, equal unlabored respirations, skin warm/dry/pink. 22:00 Reassessment: Patient appears in no apparent distress at this time. Patient and/or jw7 family updated on plan of care and expected duration. Pain level reassessed. Patient is alert, oriented x 3, equal unlabored respirations, skin warm/dry/pink. Pt is more awake and alert, talking to family. 23:00 Reassessment: Patient appears in no apparent distress at this time. Patient and/or jw7 family updated on plan of care and expected duration. Pain level reassessed. Patient is alert, oriented x 3, equal unlabored respirations, skin warm/dry/pink. Patient states feeling better. 10/04 00:59 General: ATTEMPTED TO CALL REPORT, BUSY. jw7 01:05 General: Report given to receiving nurse. jw7 Vital Signs: 10/03 19:55 BP 106 / 49; Pulse 80; Resp 10 S; Temp 97(O); Pulse Ox 98% on R/A; Weight 79.38 kg; jw7 Height 5 ft. 11 in. ; Pain 5/10; 21:00 BP 117 / 65; Pulse 87; Resp 13 S; Pulse Ox 99% on R/A; jw7 22:00 BP 131 / 64; Pulse 92; Resp 17 S; Pulse Ox 98% on R/A; jw7 23:00 BP 125 / 66; Pulse 83; Resp 13 S; Pulse Ox 98% on R/A; jw7 10/04 00:00 BP 126 / 58; Pulse 88; Resp 14 S; Pulse Ox 99% on R/A; jw7 01:00 BP 105 / 59; Pulse 96; Resp 12 S; Pulse Ox 97% on R/A; jw7 10/03 19:55 Body Mass Index 24.41 (79.38 kg, 180.34 cm) [facility] 10/03 19:55 Pain Scale: Adult [facility] ED Course: 10/03 19:48 Patient arrived in ED. 19:50 Arm band placed on. [facility] 19:51 Mindy Montenegro, RN is Primary Nurse. [facility] 19:55 Patient has correct armband on for positive identification. Bed in low position. Call [facility] light in reach. Side rails up X2. 20:01 Triage completed. [facility] 20:04 Chalo Sage MD is Attending Physician. sp4 20:30 Provided Education on: Blood Transfusion, Procedure Consent. [facility] 20:46 Initial lab(s) drawn, by ED staff, sent to lab. Inserted saline lock: 20 gauge in right [facility] antecubital area, using aseptic technique. Blood collected. 21:01 CBC with Diff Sent. oe 21:01 CMP Sent. oe 21:01 Lipase Sent. oe 21:01 PT-INR Sent. oe 21:01 Type And Screen Sent. oe 22:08 No provider procedures requiring assistance completed. Patient admitted, IV remains in [facility] place. 22:09 Provided Education on: need for admit. [facility] 22:33 Nino Joseph MD is Hospitalizing Provider. sp4 Administered Medications: 21:21 Drug: NS 0.9% IV 1000 ml IV at 125 ml/hr continuous Route: IV; Rate: 125 ml/hr; Site: [facility] right antecubital; 23:49 Follow up: Response: No adverse reaction; IV Status: Infusion continued upon admission; [facility] IV Intake: 300ml 21:21 Drug: Pantoprazole IVP 80 mg IVP once Route: IVP; Site: right antecubital; [facility] 23:49 Follow up: Response: No adverse reaction [facility] 21:21 Drug: Pantoprazole IV 8 mg/hr IV at 25 ml/hr continuous; (Standard dilution is 80 mg in [facility] 250 mL NS) Route: IV; Rate: 25 ml/hr; Site: right antecubital; 23:49 Follow up: Response: No adverse reaction; IV Status: Infusion continued upon admission; [facility] IV Intake: 70ml 21:21 Drug: metoCLOPramide IVP 10 mg IVP once; over 1 to 2 minutes Route: IVP; Site: right jw7 antecubital; 23:49 Follow up: Response: No adverse reaction jw7 22:50 Drug: Famotidine IVP 20 mg IVP once; dilute with 10 mL 0.9% NaCl; give over 2 minutes jw7 Route: IVP; Site: right antecubital; 23:49 Follow up: Response: No adverse reaction jw7 Medication: 22:09 VIS not applicable for this client. jw7 Point of Care Testing: Blood Glucose: 20:17 Blood Glucose: 141 mg/dL; jw7 Ranges: Intake: 23:49 IV: 70ml; Total: 70ml. jw7 23:49 IV: 300ml; Total: 370ml. jw7 Outcome: 22:34 Decision to Hospitalize by Provider. sp4 23:48 Instructed on the need for admit, jw7 10/04 01:08 Admitted to Med/surg accompanied by tech, via wheelchair, room 209, Report called to rachel Receiving Nurse Condition: stable 01:22 Patient left the ED. jb4 Signatures: Crow Valadez, RN RN jb4 Terry Noble Wendy wm Waits, Jodi, RN RN jw7 Chalo Sage MD MD sp4 Corrections: (The following items were deleted from the chart) 10/03 20:16 19:50 General: Appears in no apparent distress. uncomfortable, ill, Behavior is calm, jw7 cooperative, drowsy, flat, quiet, jw7 20:17 20:15 General: See Triage Assessment. jw7 jw7
--- NOTE | 2023-10-03 22:34 | EDPHYS ---
Physician Documentation [facility] Name: Omi Tyson Jr Age: 53 yrs Sex: Male : 1970 Arrival Date: 10/03/2023 Time: 19:41 Bed 15 Private MD: ED Physician Chalo Sage HPI: 10/03 20:04 This 53 yrs old Other Male presents to ER via EMS with complaints of Syncope, Black sp4 tarry stool. 22:28 Patient is a very pleasant male with no significant past medical history presents with sp4 acute syncopal episode at home associated with a black tarry stool. Patient passed out at about 8 PM briefly while in the bathroom. Denied bloody stools denied hematemesis. Denied prior GI bleeds. Reports daily alcohol use 2 beers a day approximately. Denies significant intake of ibuprofen or other NSAIDs.. Historical: - Allergies: 20:01 NKDA; jw7 - Home Meds: 20:01 clindamycin HCl 300 mg oral capsule [Active]; jw7 - PSHx: 20:01 left knee; jw7 - Immunization history:: Adult Immunizations up to date, Client reports receiving the 2nd dose of the Covid vaccine, Last tetanus immunization: < 10 years ago Flu vaccine is not up to date. - Social history:: Smoking status: Patient reports the use of cigarette tobacco products, smokes one-half pack cigarettes per day, Patient uses alcohol, on a daily basis. Patient/guardian denies using street drugs, IV drugs. - Family history:: not pertinent. ROS: 22:28 Constitutional: Negative for fever, chills, and weight loss, positive syncope positive sp4 black tarry stool 22:28 All other systems are negative, Exam: 22:28 Constitutional: This is a well developed, well nourished patient who is awake, alert, sp4 and in no acute distress. Head/Face: Normocephalic, atraumatic. Eyes: Pupils equal round and reactive to light, extra-ocular motions intact. Lids and lashes normal. Conjunctiva and sclera are not injected. Cornea within normal limits. Periorbital areas with no swelling, redness, or edema. ENT: Nares patent. No nasal discharge, no septal abnormalities noted. Tympanic membranes are normal and external auditory canals are clear. Oropharynx with no redness, swelling, or masses, exudates, or evidence of obstruction, uvula midline. Mucous membranes moist. Neck: Trachea midline, no thyromegaly or masses palpated, and no cervical lymphadenopathy. Supple, full range of motion without nuchal rigidity, or vertebral point tenderness. Chest/axilla: Normal chest wall appearance and motion. Nontender with no deformity. No lesions are appreciated. Cardiovascular: Regular rate and rhythm with a normal S1 and S2. No gallops, murmurs, or rubs. Normal PMI, no JVD. No pulse deficits. Respiratory: Lungs have equal breath sounds bilaterally, clear to auscultation and percussion. No rales, rhonchi or wheezes noted. No increased work of breathing, no retractions or nasal flaring. Abdomen/GI: Soft, non-tender, with normal bowel sounds. No distension or tympany. No guarding or rebound. No evidence of tenderness throughout. Digital rectal exam reveals grossly melenic stool, charcoal black stool, without maroon or bloody residue, no mass, no tenderness, normal sphincter tone. No hemorrhoids, no fissures, no fistula. Back: No spinal tenderness. No costovertebral tenderness. Skin: Warm, dry with normal turgor. Normal color with no rashes, no lesions, and no evidence of cellulitis. MS/ Extremity: Pulses equal, no cyanosis. Neurovascular intact. Full, normal range of motion. Neuro: Awake and alert, GCS 15, oriented to person, place, time, and situation. Cranial nerves II-XII grossly intact. Motor strength 5/5 in all extremities. Sensory grossly intact. Psych: Awake, alert, with orientation to person, place and time. Behavior, mood, and affect are within normal limits 22:54 ECG was reviewed by the Attending Physician. EKG time 2244, normal sinus rhythm, sp4 normal EKG Vital Signs: 19:55 BP 106 / 49; Pulse 80; Resp 10 S; Temp 97(O); Pulse Ox 98% on R/A; Weight 79.38 kg; jw7 Height 5 ft. 11 in. ; Pain 5/10; 21:00 BP 117 / 65; Pulse 87; Resp 13 S; Pulse Ox 99% on R/A; jw7 22:00 BP 131 / 64; Pulse 92; Resp 17 S; Pulse Ox 98% on R/A; [facility] 23:00 BP 125 / 66; Pulse 83; Resp 13 S; Pulse Ox 98% on R/A; [facility] 10/04 00:00 BP 126 / 58; Pulse 88; Resp 14 S; Pulse Ox 99% on R/A; 7 01:00 BP 105 / 59; Pulse 96; Resp 12 S; Pulse Ox 97% on R/A; [facility] 10/03 19:55 Body Mass Index 24.41 (79.38 kg, 180.34 cm) [facility] 10/03 19:55 Pain Scale: Adult [facility] MDM: 10/03 20:19 Patient medically screened. 4 22:31 Differential Diagnosis: cardiac arrhythmia, drug effect, emotional response, GI bleed, sp4 idiopathic syncope, pseudo seizure, seizure, sepsis. Data reviewed: vital signs, nurses notes, old medical records, lab test result(s), EKG, radiologic studies. Consideration of Admission/Observation Escalation of care including admission/observation considered. ED course: Patient has gross melena on exam. Patient was discussed with Dr. Rinaldi with GI gastroenterology service, he will see patient in morning he recommends PPI drip and n.p.o. Patient will be admitted to hospitalist here in ER he is hemodynamically stable. This time blood transfusion is not indicated. Patient has elevated INR and also elevated alkaline phosphatase, we suspect patient has history of alcohol intake and is possibly has early cirrhosis. . 10/03 20:05 Order name: CBC with Diff; Complete Time: 22:27 [facility] 10/03 20:05 Order name: CMP; Complete Time: 22:27 [facility] 10/03 20:05 Order name: Lipase; Complete Time: 22:27 [facility] 10/03 20:05 Order name: Urinalysis w/ reflexes [facility] 10/03 20:05 Order name: Type And Screen; Complete Time: 22:27 [facility] 10/03 20:05 Order name: PT-INR; Complete Time: 22:27 [facility] 10/03 20:29 Order name: Glucose, Ancillary Testing; Complete Time: 22:27 [facility] 10/04 00:12 Order name: Basic Metabolic Panel [facility] 10/04 00:12 Order name: Basic Metabolic Panel [facility] 10/04 00:12 Order name: Hematocrit [facility] 10/04 00:12 Order name: Hematocrit [facility] 10/04 00:12 Order name: Hematocrit [facility] 10/04 00:12 Order name: Hematocrit [facility] 10/04 00:12 Order name: Hemoglobin [facility] 10/04 00:12 Order name: Hemoglobin [facility] 10/04 00:12 Order name: Hemoglobin [facility] 10/04 00:12 Order name: Hemoglobin [facility] 10/04 01:22 Order name: ABO/RH no charge [facility] 10/04 00:12 Order name: CONS Physician Consult [facility] 10/03 20:05 Order name: IV Saline Lock; Complete Time: 21:00 sp4 10/03 20:05 Order name: Labs collected and sent; Complete Time: 21:01 sp4 10/03 22:30 Order name: NPO; Complete Time: 22:39 sp4 EC:54 Rate is 83 beats/min. Rhythm is regular, Normal Sinus Rhythm. QRS [place] is Normal. MA sp4 interval is normal. QRS interval is normal. QT interval is normal. No Q waves. T waves are Normal. No ST changes noted. Clinical impression: Normal ECG. Interpreted by me. Reviewed by me. Administered Medications: 21:21 Drug: NS 0.9% IV 1000 ml IV at 125 ml/hr continuous Route: IV; Rate: 125 ml/hr; Site: [facility] right antecubital; 23:49 Follow up: Response: No adverse reaction; IV Status: Infusion continued upon admission; [facility] IV Intake: 300ml 21:21 Drug: Pantoprazole IVP 80 mg IVP once Route: IVP; Site: right antecubital; [facility] 23:49 Follow up: Response: No adverse reaction [facility] 21:21 Drug: Pantoprazole IV 8 mg/hr IV at 25 ml/hr continuous; (Standard dilution is 80 mg in jw 250 mL NS) Route: IV; Rate: 25 ml/hr; Site: right antecubital; 23:49 Follow up: Response: No adverse reaction; IV Status: Infusion continued upon admission; [facility] IV Intake: 70ml 21:21 Drug: metoCLOPramide IVP 10 mg IVP once; over 1 to 2 minutes Route: IVP; Site: right [facility] antecubital; 23:49 Follow up: Response: No adverse reaction [facility] 22:50 Drug: Famotidine IVP 20 mg IVP once; dilute with 10 mL 0.9% NaCl; give over 2 minutes jw7 Route: IVP; Site: right antecubital; 23:49 Follow up: Response: No adverse reaction jw7 Point of Care Testing: Blood Glucose: 20:17 Blood Glucose: 141 mg/dL; jw7 Ranges: Critical Glucose Levels:Adult <50 mg/dl or >400 mg/dl <40 mg/dl or >180 mg/dl Disposition Summary: 10/03/23 22:34 Hospitalization Ordered Notes: Hospitalization Status: Inpatient Admission sp4 Provider: Nino Joseph sp4 Location: Telemetry/[facility] (Inpatient) sp4 Condition: Fair sp4 Problem: new sp4 Symptoms: have improved sp4 Bed/Room Type: Standard sp4 Room Assignment: 209(10/04/23 00:41) jb4 Diagnosis - GI Bleed/ Gastrointestinal hemorrhage, unspecified sp4 - Upper gastrointestinal bleed, syncopal episode sp4 Forms: - Medication Reconciliation Form sp4 - SBAR form sp4 - Leadership Thank You Letter sp4 Signatures: Dispatcher [employer] Crow Valencia, RN RN jb4 Mindy Montenegro RN RN jw7 Chalo Sage MD MD sp4 Corrections: (The following items were deleted from the chart) 22:12 20:14 Abdomen Pelvis W Con+CT.RAD.BRZ ordered. [facility] 10/04 00:41 10/03 22:34 sp4 jb4
[2023-10-03] MEDS ORDERED: FAMOTIDINE 20 MG/2 ML VIAL IV ONE (22:43)
[2023-10-04 00:04] LABS: Urine Bacteria None Seen /HPF (<20); Urine Bilirubin NEGATIVE (Negative); Urine Blood Negative (Negative); Urine Clarity Turbid (Clear); Urine Color Yellow (Yellow); Urine Glucose NEGATIVE (Negative); Urine Protein TRACE (Negative); Urine RBC <5 /HPF (None Seen); Urine Urobilinogen Normal (Normal)
[2023-10-04] MEDS ORDERED: ONDANSETRON 4 MG/2 ML VIAL IV PRN (00:06)
--- NOTE | 2023-10-04 00:11 | P.HP ---
Certification for Inpatient Patient admitted to: Observation With expected LOS: <2 Midnights Practitioner: I am a practitioner with admitting privileges, knowledge of patient current condition, hospital course, and medical plan of care. Services: Services provided to patient in accordance with Admission requirements found in Title 42 Section 412.3 of the Code of Federal Regulations Patient History Date of Service: 10/04/23 Reason for admission: GI bleed, syncope History of Present Illness: 53-year-old male patient with no significant medical history to the ER with episode of feeling faint and lightheaded and black stool. Patient reported has been having black stools and he felt lightheaded and faint. He came to ED for evaluation in the ED she was found to have low hemoglobin at 10.4 and significant concern for GI bleed. He was started on PPI therapy and he was admitted for inpatient care. He denies episode of vomiting of blood, fever, chills, rigor, diarrhea. Prior to evaluation he was taking advil for pain control due to toothache. Allergies No Known Allergies Allergy (Verified 10/04/23 02:29) Home Medications: clindamycin HCL [Clindamycin HCl] 300 mg PO Q6H 10/04/23 - Past Medical/Surgical History Diabetic: No -: Left Knee Surgery - Social History Alcohol use: Yes CD- Drugs: No Caffeine use: Yes Review of Systems General: Weakness Eyes: Unremarkable ENT: Unremarkable Respiratory: Unremarkable Cardiovascular: Unremarkable Gastrointestinal: Abdominal Pain, Melena, As per HPI Genitourinary: Unremarkable Musculoskeletal: Unremarkable Integumentary: Unremarkable Neurological: Unremarkable Lymphatics: Unremarkable Physical Examination - Physical Exam General: Alert, Oriented x3 HEENT: Atraumatic Neck: Supple Respiratory: Normal air movement Cardiovascular: Regular rate/rhythm, Normal S1 S2 Gastrointestinal: Soft and benign Musculoskeletal: No swelling Neurological: Normal speech, Normal strength at 5/5 x4 extr - Studies Laboratory Data (last 24 hrs) 10/03/23 10/03/23 10/03/23 20:47 20:47 20:47 WBC 9.10 Hgb 10.4 L D Hct 29.4 L Plt Count 112 L PT 20.7 H INR 1.92 Sodium 137 Potassium 4.3 BUN 32 H Creatinine 1.02 Glucose 131 H Total Bilirubin 5.4 H AST 63 H ALT 22 Alkaline Phosphatase 154 H Lipase 28 Assessment and Plan - Plan GI bleed: Evidenced by melanotic stools and drop in hemoglobin. alexei was taking advil for pain control for toothache PPI therapy has been started. Keep NPO. Have a single pointed operator evaluate. Anemia: Due to GI bleed. Will transfuse for hemoglobin less than 7.0. Will monitor hemoglobin every 4h x 24 hours. Prophylaxis: SCDs for DVT prophylaxis due to GI bleed CODE STATUS: Full code Disposition: we will treat his GI bleed and he will be discharged once cleared by gastroenterology service. - Advance Directives Does patient have a Living Will: No Does patient have a Durable POA for Healthcare: No
[2023-10-04 00:35] LABS: Hematocrit 27.5 % (39.6-49.0)
[2023-10-04] MEDS ORDERED: NA CHLORIDE 0.9% 250 ML IV SCH (01:00)
[2023-10-04] MEDS: NA CHLORIDE 0.9% 1,000 ML IV SCH (01:00)
[2023-10-04] MEDS: MORPHINE 2 MG/ML SYR IV PRN (02:07)
[2023-10-04] MEDS: PANTOPRAZOLE INJ 80 MG in NA CHLORIDE 0.9% 250 ML IV SCH ×2 (02:30→11:56)
[2023-10-04 02:36] VITALS: BMI 24.4
[2023-10-04 05:00] LABS: Hematocrit 26.1 % (39.6-49.0)
[2023-10-04] MEDS: INSULIN REGULAR (HUMAN) 100 UNIT/ML SQ SCH (07:30)
--- NOTE | 2023-10-04 07:51 | P.PN ---
Subjective Date of Service: 10/04/23 Chief Complaint: GI bleed, syncope Subjective: Other (throbbing in left face) <Megan Guillen - Last Filed: 10/04/23 08:47> Date of Service: 10/04/23 <Lani Chin Suresh - Last Filed: 10/04/23 15:57> Review of Systems 10-point ROS is otherwise unremarkable General: Malaise Eyes: Unremarkable ENT: Mouth Pain, Other (left maxillary tenderness/edema) Respiratory: Cough, Dry Cardiovascular: Unremarkable Gastrointestinal: Melena Genitourinary: Unremarkable Musculoskeletal: Unremarkable Integumentary: Unremarkable Neurological: Unremarkable Lymphatics: Unremarkable <Megan Guillen - Last Filed: 10/04/23 08:47> Physical Examination - Vital Signs Temperature: 98.9 F Blood Pressure: 123/54 Pulse: 79 Respirations: 18 Pulse Ox (%): 97 - Physical Exam General: Alert, In no apparent distress, Oriented x3 HEENT: Other (left maxillary area with edema, tenderness, poor dentition, mild scleral icterus) Neck: Supple, 2+ carotid pulse no bruit Respiratory: Clear to auscultation bilaterally Cardiovascular: Regular rate/rhythm, Other (mild tachycardia with position changes) Capillary refill: <2 Seconds Gastrointestinal: Hypoactive, Soft and benign Musculoskeletal: No clubbing, No swelling Integumentary: Other (bj) Neurological: Normal speech Lymphatics: No axilla or inguinal lymphadenopathy External genitalia: Deferred Rectal: Deferred - Studies Laboratory Data (last 24 hrs) 10/03/23 10/03/23 10/03/23 20:47 20:47 20:47 WBC 9.10 Hgb 10.4 L D Hct 29.4 L Plt Count 112 L PT 20.7 H INR 1.92 Sodium 137 Potassium 4.3 BUN 32 H Creatinine 1.02 Glucose 131 H Total Bilirubin 5.4 H AST 63 H ALT 22 Alkaline Phosphatase 154 H Lipase 28 <Megan Guillen - Last Filed: 10/04/23 08:47> - Studies Laboratory Data (last 24 hrs) 10/03/23 10/03/23 10/03/23 20:47 20:47 20:47 WBC 9.10 Hgb 10.4 L D Hct 29.4 L Plt Count 112 L PT 20.7 H INR 1.92 Sodium 137 Potassium 4.3 BUN 32 H Creatinine 1.02 Glucose 131 H Total Bilirubin 5.4 H AST 63 H ALT 22 Alkaline Phosphatase 154 H Lipase 28 <Lani Chin - Last Filed: 10/04/23 15:57> Assessment And Plan - Plan Macrocytic Anemia with upper GIB/melena: trend H/H Consult Dr. Rinaldi NPO Continue Protonix drip started in ED Pt already had CT with contrast of maxillofacial area yesterday so CT abd/pelvis held until Dr. Rinaldi recommendations Moderate Alcohol consumption with Fatty liver, Elevated Tbili/AST, thrombocytopenia: discussed probable Cirrhosis with patient and his . Voice understanding of common complications Monitor labs and observe for DT symptoms Folic acid and thiamine IVP daily Dental abscess: Clindamycin 600mg IVPB q 8h Chlorhexidine gluconate mouthwash/swish and spit 15 ml BID <Megan Guillen - Last Filed: 10/04/23 08:47> - Plan Pt seen and examined. I agree withethe note by the CISCO ENGINEER. Pt presented with GI bleed. EGD showed two esophageal varices, +gastritis, + stomach varices per GI. Will continue protonix. <Lani Chin - Last Filed: 10/04/23 15:57>
[2023-10-04] MEDS ORDERED: INFLUENZA VACCINE (for 6+ mo) 0.5 ML DOSE IMVAC ONE (08:00)
[2023-10-04] MEDS ORDERED: LIDOCAINE 1% MPF 5 ML VIAL ONE (08:37)
[2023-10-04] MEDS ORDERED: propofoL 200 MG/20 ML VIAL IV ONE ×2 (08:37→09:20)
[2023-10-04] MEDS ORDERED: EPINEPHRINE 1 MG/ML VIAL ONE (08:40)
[2023-10-04] MEDS ORDERED: CLINDAMYCIN PHOSPHATE 600 MG in NA CHLORIDE 0.9% 50 ML IV SCH (09:00)
[2023-10-04] MEDS: NA CHLORIDE 0.9% 1,000 ML ONE (09:06)
[2023-10-04] MEDS: FOLIC ACID 1 MG in NA CHLORIDE 0.9% 50 ML IV SCH (10:11)
[2023-10-04] MEDS: CHLORHEXIDINE 0.12% 473ML BOT MM SCH (11:03)
[2023-10-04] MEDS: CLINDAMYCIN 600MG/D5W 50 ML IV SCH (11:03)
[2023-10-04] MEDS: OCTREOTIDE 500 MCG in NA CHLORIDE 0.9% 500 ML IV SCH (11:03)
[2023-10-04] MEDS: THIAMINE 200 MG/2 ML INJ IVP SCH (11:03)
[2023-10-04 11:52] LABS: Hematocrit 27.3 % (39.6-49.0)
--- NOTE | 2023-10-04 15:05 | P.DS ---
Admission Date: 10/04/23 Discharge Date: 10/06/23 Reason for Admission: GI bleed, syncope Consultations: Dr. Lentz Procedures: Endoscopy with esophageal varices banding. Brief History of Present Illness: 53-year-old male patient with no significant medical history came to the ED for evaluation of left facial pain and swelling. He was diagnosed with a dental abscess and given antibiotics post CT with contrast of maxillofacial area. He was discharge and took one antibiotic. Then he returned to the ER for the second time in 24 hours with episode of feeling faint and lightheaded with black stools. Patient reported has been having black stools and he felt lightheaded and faint for about five days. He was found to have low hemoglobin at 10.4 and significant concern for GI bleeding. He was started on PPI therapy and he was admitted for inpatient care. He denies episode of vomiting of blood, fever, chills, rigor, diarrhea. Dr. Lentz was consulted. Hospital Course: 53-year-old male patient with no significant medical history came to the ED for evaluation of left facial pain and swelling. He was diagnosed with a dental abscess and given antibiotics post CT with contrast of maxillofacial area. He was discharge and took one antibiotic. Then he returned to the ER for the second time in 24 hours with episode of feeling faint and lightheaded with black stools. Patient reported has been having black stools and he felt lightheaded and faint for about five days. He was found to have low hemoglobin at 10.4 and significant concern for GI bleeding. He was started on PPI therapy and he was admitted for inpatient care. He denies episode of vomiting of blood, fever, chills, rigor, diarrhea. Dr. Lentz was consulted. Mr. Tyson was taken for endoscopy and esophageal varices were banded. He was noted to have gastritis and some gastric varices as well. Stongly suggest ETOH/cigarette abstinence. Hemoglobin stable at 8.5. <Megan Guillen - Last Filed: 10/06/23 05:26> Admission Date: 10/04/23 Discharge Date: 10/06/23 Hospital Course: Pt seen and examined. I agree with the note by the SET UP AND CHARGER. Ok to discharge pt. <Lani Chin - Last Filed: 10/06/23 15:35> Disposition: ROUTINE DISCHARGE Discharge Condition: GOOD Vital Signs/Physical Exam: Temp Pulse Resp BP Pulse Ox 97.8 F 87 18 112/59 L 97 10/04/23 12:00 10/04/23 12:00 10/04/23 12:00 10/04/23 12:00 10/04/23 12:00 General: Alert, In no apparent distress HEENT: Other (left cheek edema, tenderness 2nd to dental abscess to left maxilla) Neck: Supple, 2+ carotid pulse no bruit Respiratory: Clear to auscultation bilaterally, Normal air movement Cardiovascular: No edema, Normal pulses Capillary refill: <2 Seconds Gastrointestinal: Normal bowel sounds Musculoskeletal: No clubbing, No swelling Integumentary: No rashes Neurological: Normal speech Lymphatics: No axilla or inguinal lymphadenopathy External genitalia: Deferred Rectal: Deferred Laboratory Data at Discharge: WBC 9.10 thou/uL (4.3-10.9) 10/03/23 20:47 Hgb 9.7 g/dL (13.6-17.9) L 10/04/23 11:33 Hct 27.3 % (39.6-49.0) L 10/04/23 11:33 Plt Count 112 thou/uL (152-406) L 10/03/23 20:47 PT 20.7 SECONDS (9.5-12.5) H 10/03/23 20:47 INR 1.92 10/03/23 20:47 Sodium 137 mEq/L (136-145) 10/03/23 20:47 Potassium 4.3 mEq/L (3.5-5.1) 10/03/23 20:47 BUN 32 mg/dL (7-18) H 10/03/23 20:47 Creatinine 1.02 mg/dL (0.70-1.30) 10/03/23 20:47 Glucose 131 mg/dL (74-106) H 10/03/23 20:47 Magnesium 1.7 mg/dL (1.6-2.4) 10/04/23 11:33 Total Bilirubin 5.4 mg/dL (0.2-1.0) H 10/03/23 20:47 AST 63 U/L (15-37) H 10/03/23 20:47 ALT 22 U/L (16-61) 10/03/23 20:47 Alkaline Phosphatase 154 U/L (45-117) H 10/03/23 20:47 Lipase 28 U/L (13-75) 10/03/23 20:47 <Megan Guillen - Last Filed: 10/06/23 05:26> Vital Signs/Physical Exam: Temp Pulse Resp BP Pulse Ox 98.4 F 78 16 147/72 H 97 10/05/23 12:00 10/05/23 12:00 10/05/23 12:00 10/05/23 12:00 10/05/23 12:00 Laboratory Data at Discharge: WBC 7.60 thou/uL (4.3-10.9) 10/05/23 02:22 Hgb 8.5 g/dL (13.6-17.9) L D 10/05/23 02:22 Hct 23.5 % (39.6-49.0) L 10/05/23 02:22 Plt Count 104 thou/uL (152-406) L 10/05/23 02:22 PT 20.7 SECONDS (9.5-12.5) H 10/03/23 20:47 INR 1.92 10/03/23 20:47 Sodium 136 mEq/L (136-145) 10/05/23 02:22 Potassium 4.2 mEq/L (3.5-5.1) 10/05/23 02:22 BUN 18 mg/dL (7-18) 10/05/23 02:22 Creatinine 0.83 mg/dL (0.70-1.30) 10/05/23 02:22 Glucose 98 mg/dL (74-106) 10/05/23 02:22 Magnesium 1.7 mg/dL (1.6-2.4) 10/04/23 11:33 Total Bilirubin 5.4 mg/dL (0.2-1.0) H 10/03/23 20:47 AST 63 U/L (15-37) H 10/03/23 20:47 ALT 22 U/L (16-61) 10/03/23 20:47 Alkaline Phosphatase 154 U/L (45-117) H 10/03/23 20:47 Lipase 28 U/L (13-75) 10/03/23 20:47 <Lani Chin - Last Filed: 10/06/23 15:35> Diet: [place] Activity: Ad keenan <Megan Guillen - Last Filed: 10/06/23 05:26> <Lani Chin - Last Filed: 10/06/23 15:35> Home Medications: clindamycin HCL [Clindamycin HCl] 300 mg PO Q6H 10/04/23 Magic Mouthwash [Magic Mouthwash*] 15 ml PO QID PRN 7 Days #240 bottle 10/05/23 Pantoprazole [Protonix Tab*] 40 mg PO BID 30 Days #60 tab 10/05/23 clindamycin HCL [Cleocin HCl *] 300 mg PO Q8HR 7 Days #21 cap 10/05/23 New Medications: clindamycin HCL [Cleocin HCl *] 300 mg PO Q8HR 7 Days #21 cap Magic Mouthwash [Magic Mouthwash*] 15 ml PO QID PRN 7 Days #240 bottle PRN Reason: gum pain/abcess Pantoprazole [Protonix Tab*] 40 mg PO BID 30 Days #60 tab Physician Discharge Instructions: Continue ad keenan activity. Take protonix 40mg po BID for at least 1 month. Take clindamycin for tooth abscess. Follow up with a dentist within a few days for further care. Follow up with PCP within 1 - 2 weeks Followup: NONE,NONE [Primary Care Provider] - 1 Week Lowell Lentz MD [ASSOCIATE-ACTIVE - CAN ADMIT] - 1 Week
[2023-10-04] MEDS: INFLUENZA VACCINE (for 6+ mo) 0.5 ML DOSE IMVAC ONE (18:15)
[2023-10-05 03:47] LABS: Absolute Lymphocytes (CBC) 1.8 K/uL (0.7-4.9); Hematocrit 23.5 % (39.6-49.0); Lymphocytes % 24.2 % (15.3-44.8); MCV 102.9 fL (80-100); MPV 7.9 fL (7.6-11.3); Platelets 104 thou/uL (152-406); RBC Red Blood Cell Count 2.29 M/uL (4.33-5.43)
[2023-10-05 03:58] LABS: Potassium 4.2 mEq/L (3.5-5.1)
[2023-10-05 06:00] VITALS: O2SAT 95
--- NOTE | 2023-10-05 07:43 | P.PN ---
Date of Service: 10/05/23 Subjective Date of Service: 10/05/23 Chief Complaint: GI bleed, syncope Subjective: Other (throbbing in left face) Review of Systems 10-point ROS is otherwise unremarkable General: feeling better Eyes: Unremarkable ENT: Mouth Pain, Other (left maxillary tenderness/edema) Respiratory: Cough, Dry Cardiovascular: Unremarkable Gastrointestinal: Melena, no pain Genitourinary: Unremarkable Musculoskeletal: Unremarkable Integumentary: Unremarkable Neurological: Unremarkable Lymphatics: Unremarkable Physical Examination - Vital Signs Temperature: 99.3 F Blood Pressure: 139/64 Pulse: 80 Respirations: 18 Pulse Ox (%): 95 - Physical Exam General: Alert, In no apparent distress, Oriented x3 HEENT: Other (left maxillary area with edema, tenderness, poor dentition, mild scleral icterus) Neck: Supple, 2+ carotid pulse no bruit Respiratory: Clear to auscultation bilaterally Cardiovascular: Regular rate/rhythm Capillary refill: <2 Seconds Gastrointestinal: Hypoactive, Soft and benign Musculoskeletal: No clubbing, No swelling Integumentary: Other (bj) Neurological: Normal speech Lymphatics: No axilla or inguinal lymphadenopathy External genitalia: Deferred Rectal: Deferred Assessment And Plan Macrocytic Anemia with upper GIB/melena: trend H/H, hemoglobin drop to 8.5, unsurprised. Pt notified that he must modify work activity until no s/s of dizziness, weakness. Will stop IVF today. Consult Dr. Rinaldi, went to endo on 10/04/[address] Lentz NPO ->CL, will advance to soft diet today Continue Protonix drip -> will switch to po today Pt already had CT with contrast of maxillofacial area yesterday so CT abd/pelvis held until Dr. Rinaldi recommendations Moderate Alcohol consumption with Fatty liver, Elevated Tbili/AST, thrombocytopenia: discussed probable Cirrhosis with patient and his . Voice understanding of common complications Monitor labs and observe for DT symptoms Folic acid and thiamine IVP daily discussed lifestyle changes with patient this am and he is motivated to change per report Dental abscess: Clindamycin 600mg IVPB q 8h, switch to po today Chlorhexidine gluconate mouthwash/swish and spit 15 ml BID
[2023-10-05] MEDS: MULTIVITAMIN TAB PO SCH (09:04)
[2023-10-05] MEDS: PANTOPRAZOLE 40MG TABLET PO SCH (09:05)
[2023-10-05 09:10] VITALS: TEMP 98.4
[2023-10-05 12:37] VITALS: BP 147/72
[2023-10-05] MEDS: MAGIC MOUTHWASH 180 ML BTL PO PRN (14:40)
--- NOTE | 2023-10-05 14:43 | EKG ---
Test Date: 2023-10-03 Test Time: 22:44:03 Manager Spanish: BERNY MEASUREMENT RESULTS: Intervals: Rate: 83 AR: 144 QRSD: 86 QT: 386 QTc: 453 [place]: P: 32 AR: 144 QRS: 59 T: 62 INTERPRETIVE STATEMENTS: Normal sinus rhythm Normal ECG Compared to ECG 05/17/2022 13:26:25 No significant changes Electronically Signed On 10-05-23 14:41:15 RECORD CHANGER ASSEMBLER by Martir Alejandro
== END 2023-10-05 15:43 | disposition home or self-care (01) | DRG 377 ==
LOC: ER 19:41 → ERHOLD 10-04 00:06 → 2ND 10-04 01:11
PROVIDERS: ADMIT Internal Medicine Nephrology; ATTEND Hospitalist
PROC: 0W3P8ZZ Control Bleeding in Gastrointestinal Tract, Via Natural or Artificial Opening Endoscopic (ICD-10-PCS; principal; 2023-10-04 09:00)
DX: K29.21 Alcoholic gastritis with bleeding (principal); I85.11 Secondary esophageal varices with bleeding; D53.9 Nutritional anemia, unspecified; D69.6 Thrombocytopenia, unspecified; K04.7 Periapical abscess without sinus; I86.4 Gastric varices; K76.0 Fatty (change of) liver, not elsewhere classified; F17.210 Nicotine dependence, cigarettes, uncomplicated; Z23 Encounter for immunization
CPT/HCPCS: 36415; 80048; 80053; 81001; 82947; 83690; 83735; 85014; 85018; 85025; 85610; 86850; 86900; 86901; 90471; 93005; C9113; J0171; J2001; J2270; J2354; J2704; J2765; J3411; J7030; J7040; J7050; Q2035

== ENCOUNTER → 2023-10-03 | Emergency (ER) | payer SELFPAY ==
[2023-10-03 11:21] LABS: Absolute Lymphocytes (CBC) 1.8 K/uL (0.7-4.9); Hematocrit 35.5 % (39.6-49.0); Lymphocytes % 19.3 % (15.3-44.8); MCV 102.6 fL (80-100); MPV 7.3 fL (7.6-11.3); Platelets 110 thou/uL (152-406); RBC Red Blood Cell Count 3.46 M/uL (4.33-5.43)
[2023-10-03 11:33] LABS: Potassium 4.6 mEq/L (3.5-5.1)
--- NOTE | 2023-10-03 11:59 | RAD REPORT ---
EXAM DESCRIPTION: CT - FC CLINICAL HISTORY: left facial swelling COMPARISON: No comparisons TECHNIQUE: Axial 2 mm thick images of the face were obtained with sagittal and coronal reconstructio n images. All CT scans are performed using dose optimization technique as appropriate and may include automated exposure control or mA/KV adjustment according to patient size. FINDINGS: No acute facial bone fracture is seen.The mandible is intact. Soft tissue swelling is seen along the left aspect of face most notable at anterior to the left maxil neal sinus. This may be odontogenic in origin related to poor dentition along the maxillary teeth lesli ng anterior left aspect. Mild polypoid mucosal thickening is seen in both maxillary antra greater lef t. The globes and orbital contents are grossly unremarkable. IMPRESSION: Significant soft tissue swelling is present particularly anterior to the left maxillary sinus wall. This appears to be in continuity with left-sided periapical abscess involving poor dentit ion in the anterior left maxilla.
--- NOTE | 2023-10-03 12:22 | ER ---
Nurse's Notes [facility] Name: Omi Tyson Jr Age: 53 yrs Sex: Male : 1970 Arrival Date: 10/03/2023 Time: 10:51 Bed 5 Private MD: Diagnosis: Dental abscess;Left facial swelling Presentation: 10/03 11:01 Chief complaint: Patient states: "A couple days ago, I woke up with swelling on my left mb9 side of my face. I have head pressure and have been sneezing blood. My head is throbbing. I took Tylenol this morning and it hasn't helped.". Coronavirus screen: Vaccine status: Patient reports being unvaccinated. Ebola Screen: No symptoms or risks identified at this time. Initial Sepsis Screen: Does the patient meet any 2 criteria? No. Patient's initial sepsis screen is negative. Does the patient have a suspected source of infection? No. Patient's initial sepsis screen is negative. Risk Assessment: Do you want to hurt yourself or someone else? Patient reports no desire to harm self or others. Onset of symptoms was October 03, 2023. 11:01 Method Of Arrival: Ambulatory 9 11:01 Acuity: NILTON 3 mb9 Triage Assessment: 11:03 General: Appears in no apparent distress. Behavior is calm, cooperative. Pain: mb9 Complains of pain in face Pain currently is 10 out of 10 on a pain scale. Quality of pain is described as throbbing. EENT: Throat is clear. EENT: Nares are clear bilaterally. Neuro: Burris Agitation-Sedation Scale (RASS): 0 - Alert and Calm Level of Consciousness is awake, alert, obeys commands, Oriented to person, place, time, situation, Appropriate for age. Cardiovascular: Patient's skin is warm and dry. Respiratory: Airway is patent Respiratory effort is even, unlabored. GI: No signs and/or symptoms were reported involving the gastrointestinal system. Musculoskeletal: Range of motion: intact in all extremities. Historical: - Allergies: 11: NKDA; mb9 - Home Meds: 11: None [Active]; mb9 - PMHx: 11: None; mb9 - PSHx: 11:01 left knee; mb9 - Immunization history:: Adult Immunizations up to date. - Social history:: Smoking status: Patient reports the use of cigarette tobacco products, smokes one-half pack cigarettes per day. Screenin:13 [facility] ED Fall Risk Assessment (Adult) History of falling in the last 3 months, ko1 including since admission No falls in past 3 months (0 pts) Confusion or Disorientation No (0 pts) Intoxicated or Sedated No (0 pts) Impaired Gait No (0 pts) Mobility Assist Device Used No (0 pt) Altered Elimination No (0 pt) Score/Fall Risk Level 0 - 2 = Low Risk Oriented to surroundings, Maintained a safe environment, Educated pt \\T\\ family on fall prevention, incl call for assistance when getting out of bed, Assessed \\T\\ reinforced patient's understanding of fall precautions, Provided non-skid footwear, Hourly rounding (assess needs \\T\\ fall precautionary measures) done, Used ambulatory aids as needed (educated on \\T\\ assisted with), Used gait belt as appropriate. Abuse screen: Denies threats or abuse. Denies injuries from another. Abuse screen:. Nutritional screening: No deficits noted. Tuberculosis screening: No symptoms or risk factors identified. Assessment: 11:13 Respiratory: Airway is patent Breath sounds are clear bilaterally. ko1 12:25 Respiratory: Trachea midline Respiratory effort is even, unlabored. ko1 Vital Signs: 11:01 BP 144 / 84; Pulse 86; Resp 18; Temp 98.4; Pulse Ox 100% ; Weight 86.18 kg; Height 5 mb9 ft. 11 in. ; Pain 10/10; 12:25 BP 138 / 78; Pulse 82; Resp 16; Pulse Ox 99% ; ko1 11:01 Body Mass Index 26.50 (86.18 kg, 180.34 cm) mb9 11:01 Pain Scale: Adult mb9 ED Course: 10:55 Patient arrived in ED. mg5 10:55 Arm band placed on. mb9 10:56 Wellington Darden DO is Attending Physician. ms3 11:03 Triage completed. mb9 11:13 Patient has correct armband on for positive identification. Bed in low position. Call ko1 light in reach. Side rails up X 1. Pulse ox on. NIBP on. Door closed. Noise minimized. Warm blanket given. 11:13 Inserted saline lock: 20 gauge in right forearm, using aseptic technique. Blood ko1 collected. 11:15 BMP Sent. ko1 11:15 CBC with Diff Sent. ko1 11:28 Mary Torres, RN is Primary Nurse. ko1 11:48 CT Maxillofacial W/cont In Process Unspecified. EDMS 12:21 Alon Bolton DDS is Referral Physician. ms3 12:25 Provided Education on: na. ko1 12:25 No provider procedures requiring assistance completed. IV discontinued, intact, ko1 bleeding controlled, No redness/swelling at site. Pressure dressing applied. Administered Medications: No medications were administered Medication: 12:25 VIS not applicable for this client. ko1 Outcome: 12:21 Discharge ordered by MD. ms3 12:25 Discharged to home ambulatory, with family, ko1 12:25 Condition: stable 12:25 Discharge instructions given to patient, family, Instructed on discharge instructions, follow up and referral plans. medication usage, Demonstrated understanding of instructions, follow-up care, medications, Prescriptions given X 1, 12:35 Patient left the ED. ko1 Signatures: Dispatcher [employer] EDCO Wellington Darden DO DO ms3 Mary Torres, RN RN ko1 Nelli Chavarria RN RN mb9 Micheline Phillips mg5
--- NOTE | 2023-10-03 12:22 | EDPHYS ---
Physician Documentation [facility] Name: Omi Tyson Jr Age: 53 yrs Sex: Male : 1970 Arrival Date: 10/03/2023 Time: 10:51 Bed 5 Private MD: ED Physician Wellington Darden HPI: 10/03 12:22 This 53 yrs old Male presents to ER via Ambulatory with complaints of Facial Swelling, ms3 Sneezing - BLOOD, Head Pressure. 12:22 53-year-old male with no past medical history presents to the emergency department for ms3 left-sided facial swelling that has been ongoing for 2 days. Patient states his pain is a 8/10. Patient denies dental pain, fevers, chills.. Historical: - Allergies: 11:01 NKDA; mb9 - Home Meds: 11:01 None [Active]; mb9 - PMHx: 11:01 None; mb9 - PSHx: 11:01 left knee; mb9 - Immunization history:: Adult Immunizations up to date. - Social history:: Smoking status: Patient reports the use of cigarette tobacco products, smokes one-half pack cigarettes per day. ROS: 12:22 Constitutional: Negative for fever, and chills. Neck: Negative for injury, pain, and ms3 swelling, Cardiovascular: Negative for chest pain, and palpitations. Respiratory: Negative for shortness of breath, cough, wheezing, and pleuritic chest pain, Abdomen/GI: Negative for abdominal pain, nausea, vomiting, diarrhea, and constipation, 12:22 ENT: Positive for Left facial swelling, Exam: 12:22 Constitutional: This is a well developed, well nourished patient who is awake, alert, ms3 and in no acute distress. Chest/axilla: Normal chest wall appearance and motion. Nontender with no deformity. Cardiovascular: Regular rate and rhythm with a normal S1 and S2. No gallops, murmurs, or rubs. Normal PMI, no JVD. No pulse deficits. Respiratory: Lungs have equal breath sounds bilaterally, clear to auscultation and percussion. No rales, rhonchi or wheezes noted. No increased work of breathing, no retractions or nasal flaring. Abdomen/GI: Soft, non-tender, with normal bowel sounds. No distension or tympany. No guarding or rebound. No evidence of tenderness throughout. 12:22 Head/face: Swelling over left maxilla, tender to palpation left maxilla. Vital Signs: 11:01 BP 144 / 84; Pulse 86; Resp 18; Temp 98.4; Pulse Ox 100% ; Weight 86.18 kg; Height 5 mb9 ft. 11 in. ; Pain 10/10; 12:25 BP 138 / 78; Pulse 82; Resp 16; Pulse Ox 99% ; ko1 11:01 Body Mass Index 26.50 (86.18 kg, 180.34 cm) mb9 11:01 Pain Scale: Adult mb9 MDM: 11:08 Patient medically screened. ms3 12:22 Differential diagnosis: dental caries, dental abscess, Sinusitis. Data reviewed: vital ms3 signs, nurses notes, lab test result(s), radiologic studies, and as a result, I will discharge patient. Care significantly affected by the following Social Determinants of Health: Poor access to healthcare and/or lack of insurance. Counseling: I had a detailed discussion with the patient and/or guardian regarding the historical points, exam findings, and any diagnostic results supporting the discharge/admit diagnosis, lab results, radiology results, the need for outpatient follow up, to return to the emergency department if symptoms worsen or persist or if there are any questions or concerns that arise at home. Special discussion: I discussed with the patient/guardian in detail that at this point there is no indication for admission to the hospital. It is understood, however, that if the symptoms persist or worsen the patient needs to return immediately for re-evaluation. ED course: Discussed labs and imaging with patient and his . They understand agree with plan. Patient to follow-up Dr. Dill in 2 to 3 days. All questions were answered. Return precautions discussed include worsening symptoms, or any other concerns. On reevaluation patient is alert and oriented x 4, no apparent distress, nontoxic-appearing, speaking full sentences. 10/03 11:03 Order name: CBC with Diff; Complete Time: 12:04 ms3 10/03 11:03 Order name: BMP; Complete Time: 12:04 ms3 10/03 11:03 Order name: CT Maxillofacial W/cont; Complete Time: 12:04 ms3 Administered Medications: No medications were administered Disposition Summary: 10/03/23 12:21 Discharge Ordered Notes: Location: Home ms3 Condition: Stable ms3 Diagnosis - Dental abscess ms3 - Left facial swelling ms3 Followup: ms3 - With: Alon Bolton DDS - When: 2 - 3 days - Reason: Recheck today's complaints Discharge Instructions: - Discharge Summary Sheet ms3 - Dental Pain ms3 Forms: - Medication Reconciliation Form ms3 - Thank You Letter ms3 - Antibiotic Education ms3 - Prescription Opioid Use ms3 - Patient Portal Instructions ms3 - Leadership Thank You Letter ms3 - Work release form ko1 Prescriptions: - Clindamycin HCl 300 mg Oral Capsule - take 1 capsule ORAL route every 6 hours for 10 days; 40 capsule; Refills: 0, ms3 Product Selection Permitted Signatures: Dispatcher [employer] Wellington Melendez DO DO ms3 Nelli Chavarria RN RN mb9
[2023-10-03 12:44] VITALS: BP 138/78; TEMP 98.4; O2SAT 99
== END ==
LOC: ER 10:51
DX: K04.7 Periapical abscess without sinus (principal)
CPT/HCPCS: 36415; 70487; 80048; 85025; Q9967

== ENCOUNTER 2025-03-25 18:07 | Inpatient (IN) | payer SELFPAY ==
[2025-03-25] MEDS ORDERED: DIAZEPAM 10 MG/2 ML INJ SYRINGE ONE (18:50)
[2025-03-25] MEDS ORDERED: NA CHLORIDE 0.9% 1,000 ML ONE (18:51)
[2025-03-25] MEDS ORDERED: MORPHINE 4 MG/ML SYR ONE ×2 (18:51→19:05)
[2025-03-25 19:13] LABS: ALT/SGPT 21.0 U/L (16-61); AST/SGOT 62.0 U/L (15-37); Albumin 3.0 g/dL (3.4-5.0); Albumin/Globulin Ratio 0.8 (1.1-1.8); Alkaline Phosphatase 165.0 U/L (45-117); Anion Gap 11.5 mEq/L (5.0-15.0); BUN Blood Urea Nitrogen 9.0 mg/dL (7-18); Globulin 3.7 g/dL (2.3-3.5); Glucose Level 167.0 mg/dL (74-106); Lipase 40.0 U/L (13-75); Potassium 3.5 mEq/L (3.5-5.1)
[2025-03-25 19:23] LABS: Absolute Lymphocytes (CBC) 1.4 K/uL (0.7-4.9); Hematocrit 36.6 % (39.6-49.0); Hemoglobin 13.0 g/dL (13.6-17.9); MCH 34.5 pg (27.0-35.0); MCHC 35.4 g/dL (32.0-36.0); MCV 97.5 fL (80-100); MPV 8.2 fL (7.6-11.3); Nucleated RBC Absolute Count 0.0 (0-0); Nucleated Red Blood Cells % 0.1 % (0-0); RBC Red Blood Cell Count 3.75 M/uL (4.33-5.43); White Blood Count 5.00 thou/uL (4.3-10.9)
--- NOTE | 2025-03-25 20:55 | RAD REPORT ---
EXAMINATION: CT ABDOMEN AND PELVIS WITH CONTRAST CLINICAL INDICATION: ventral hernia and possible right inguinal hernia;Abd pain TECHNIQUE: CT abdomen and pelvis was performed, after the administration of IV contrast, as per [facility]. Axial, sagittal and coronal reconstructions were obtained. One or more of the following dose reduction techniques were used: Automated exposure control, adjustment of the mA and k V according to patient size, and iterative reconstruction. Unless otherwise specified, incidental findings do not require dedicated imaging follow-up. COMPARISON: 05/17/2022 FINDINGS: LOWER CHEST: Mild linear atelectasis in both lung bases. Small hiatal hernia. LIVER: Fatty liver with nodular contour to the liver. Mild fluid along the right hepatic border. Nadja sly unremarkable gallbladder. SPLEEN: Normal size. No focal lesion. PANCREAS: No mass, ductal dilation, or randolph-pancreatic fluid. ADRENALS: Normal; no mass. KIDNEYS: Normal size and contour. No hydronephrosis. GASTROINTESTINAL TRACT: No evidence of free air, significant intra-abdominal free fluid, bowel obstru ction or abscess. Mild edema is present in the small bowel mesentery. APPENDIX: Normal appendix. LYMPH NODES: No lymphadenopathy. MUSCULOSKELETAL: Mild multilevel spinal degenerative changes. ADDITIONAL FINDINGS: Midline supraumbilical fat-containing hernia with inflamed fat, moderate in size . IMPRESSION: Fatty liver with nodular contour compatible with cirrhosis. Mild adjacent fluid is present. Supraumbilical midline moderate-sized fat-containing hernia with mild inflamed fat.
[2025-03-25] MEDS ORDERED: HYDROMORPHONE HCL 1 MG/ML INJ ONE (21:11)
--- NOTE | 2025-03-25 21:32 | EDPHYS ---
Physician Documentation [facility] Name: Omi Tyson Jr Age: 54 yrs Sex: Male : 1970 Arrival Date: 03/25/2025 Time: 18:07 Bed 5 Private MD: ED Physician Rafael Romo HPI: 03/25 18:30 This 54 yrs old Male presents to ER via Unassigned with complaints of possible hernia. cp Historical: - Allergies: 18:34 NKDA; iw - PMHx: 18:34 cirrhosis of liver; Alcoholism; iw - PSHx: 18:34 left knee; iw - Immunization history:: Adult Immunizations up to date. - Infectious Disease History:: Denies. - Social history:: Smoking status: Patient reports the use of cigarette tobacco products, smokes one pack cigarettes per day. ROS: 18:35 Constitutional: Negative for body aches, chills, fever, poor PO intake, cp 18:35 Cardiovascular: Negative for chest pain, palpitations, cp 18:35 Respiratory: Negative for cough, shortness of breath, wheezing, 18:35 Abdomen/GI: Positive for abdominal pain, of the mid upper abdomen and right suprapubic area, 18:35 Back: Negative for pain at rest, pain with movement, Exam: 18:40 Constitutional: The patient appears in no acute distress, alert, awake, cp non-diaphoretic, non-toxic, well developed, well nourished, uncomfortable, 18:40 Head/Face: Normocephalic, atraumatic. cp Vital Signs: 18:30 BP 139 / 65; Pulse 73; Resp 18; Temp 98.4; Pulse Ox 98% on R/A; Weight 86.18 kg; Height iw 5 ft. 11 in. ; Pain 10/10; 19:12 BP 154 / 89; Pulse 75; Resp 17; Temp 98.4; Pulse Ox 98% ; Pain 9/10; bm8 20:00 BP 138 / 74; Pulse 65; Resp 17; Temp 98.4; Pulse Ox 98% ; Pain 7/10; bm8 21:00 BP 134 / 71; Pulse 62; Resp 17; Temp 98.4; Pulse Ox 96% ; Pain 8/10; bm8 22:00 BP 152 / 75; Pulse 93; Resp 18; Temp 98.4; Pulse Ox 93% ; Pain 3/10; bm8 23:09 BP 145 / 85; Pulse 79; Resp 17; Temp 98.4; Pulse Ox 100% ; Pain 7/10; bm8 18:30 Body Mass Index 26.50 (86.18 kg, 180.34 cm) iw 18:30 Pain Scale: Adult iw 19:12 Pain Scale: Adult bm8 20:00 Pain Scale: Adult bm8 21:00 Pain Scale: Adult bm8 22:00 Pain Scale: Adult bm8 23:09 Pain Scale: Adult bm8 [place] Coma Score: 19:12 Eye Response: spontaneous(4). Motor Response: obeys commands(6). Verbal Response: bm8 oriented(5). Total: 15. 20:00 Eye Response: spontaneous(4). Motor Response: obeys commands(6). Verbal Response: bm8 oriented(5). Total: 15. 21:00 Eye Response: spontaneous(4). Motor Response: obeys commands(6). Verbal Response: bm8 oriented(5). Total: 15. 22:00 Eye Response: spontaneous(4). Motor Response: obeys commands(6). Verbal Response: bm8 oriented(5). Total: 15. 23:09 Eye Response: spontaneous(4). Motor Response: obeys commands(6). Verbal Response: bm8 oriented(5). Total: 15. MDM: 18:25 Medical Screening Exam initiated cp 21:28 Management of patient was discussed with the following: Cell Repairer: Dr Ramírez who cp will consult for general surgery. 03/25 18:40 Order name: CBC with Diff; Complete Time: 19:26 cp 03/25 20:58 Interpretation: Normal except: RBC 3.75; HGB 13.0; HCT 36.6; PLT 117; RDW 16.7. cp 03/25 18:40 Order name: CMP; Complete Time: 19:26 cp 03/25 20:58 Interpretation: Normal except: CL 108; GLUC 167; AST 62; ALK 165; BILIT 3.9; ALB 3.0; cp GLOB 3.7; A/G 0.8. 03/25 18:40 Order name: Lipase; Complete Time: 19:26 cp 03/25 19:02 Order name: CT Abd/Pelvis - IV Contrast Only; Complete Time: 20:56 cp 03/25 18:40 Order name: IV Saline Lock; Complete Time: 18:46 cp 03/25 18:40 Order name: Labs collected and sent; Complete Time: 18:46 cp 03/25 20:59 Order name: Misc. Order: abdominal binder; Complete Time: 21:08 cp Administered Medications: 18:55 Drug: NS 0.9% IV 1000 ml IV at 1 bolus Per protocol; to be given as a bolus over 60 bp minutes Route: IV; Rate: 1 bolus; Site: left forearm; 22:13 Follow up: Response: No adverse reaction; IV Status: Completed infusion bm8 18:55 Drug: Diazepam IVP 5 mg IVP once Route: IVP; Site: left forearm; bp 22:13 Follow up: Response: No adverse reaction bm8 18:55 Drug: morphine IVP or IV 4 mg IVP once over 4 mins Route: IVP; Infused Over: 4 mins; bp Site: left forearm; 22:13 Follow up: Response: No adverse reaction bm8 19:12 Drug: morphine IVP or IV 4 mg IVP once over 4 mins Route: IVP; Infused Over: 4 mins; bm8 Site: left forearm; 22:13 Follow up: Response: No adverse reaction bm8 21:15 Drug: HYDROmorphone IVP 1 mg IVP once Route: IVP; Site: right antecubital; bm8 22:12 Follow up: Response: No adverse reaction bm8 Disposition Summary: 03/25/25 21:32 Hospitalization Ordered Notes: Hospitalization Status: Inpatient Admission cp Provider: Alon Blanchard cp Location: Telemetry/[facility] (Inpatient) cp Condition: Stable cp Problem: new cp Symptoms: have improved cp Bed/Room Type: Standard cp Room Assignment: 229(03/25/25 23:08) vk Diagnosis - Ventral hernia without obstruction or gangrene cp - Abdominal pain, unspecified - intractable cp Forms: - Medication Reconciliation Form cp - SBAR form cp - Leadership Thank You Letter cp Signatures: Dispatcher [employer] Helena Razo RN RN Mayco Markham PA PA cp Travon Dias RN RN Kim Don vk Osmany Szymanski RN RN bm8 Corrections: (The following items were deleted from the chart) 23:08 21:32 cp vk
--- NOTE | 2025-03-25 21:32 | ER ---
Nurse's Notes [facility] Name: Omi Tyson Jr Age: 54 yrs Sex: Male : 1970 Arrival Date: 03/25/2025 Time: 18:07 Bed 5 Private MD: Diagnosis: Ventral hernia without obstruction or gangrene;Abdominal pain, unspecified-intractable Presentation: 03/25 18:30 Chief complaint: Patient states: knot upper stomach. RLQ swelling started 1 week ago. iw Pain w touch, coughing and breathing. Coronavirus screen: At this time, the client does not indicate any symptoms associated with coronavirus-19. Ebola Screen: No symptoms or risks identified at this time. Initial Sepsis Screen: Does the patient meet any 2 criteria? No. Patient's initial sepsis screen is negative. Does the patient have a suspected source of infection? No. Patient's initial sepsis screen is negative. Risk Assessment: Do you want to hurt yourself or someone else? Patient reports no desire to harm self or others. Onset of symptoms was March 21, 2025. 18:30 Method Of Arrival: Ambulatory iw 18:30 Acuity: NILTON 3 iw Triage Assessment: 18:30 General: Appears in no apparent distress. uncomfortable, Behavior is appropriate for bp age. Pain: Complains of pain in abdomen and pelvis. EENT: No deficits noted. Neuro: No deficits noted. Cardiovascular: No deficits noted. Respiratory: No deficits noted. GI: Reports lower abdominal pain. : Reports pain scrotum. Derm: No deficits noted. Musculoskeletal: No deficits noted. Historical: - Allergies: 18:34 NKDA; iw - PMHx: 18:34 cirrhosis of liver; Alcoholism; iw - PSHx: 18:34 left knee; iw - Immunization history:: Adult Immunizations up to date. - Infectious Disease History:: Denies. - Social history:: Smoking status: Patient reports the use of cigarette tobacco products, smokes one pack cigarettes per day. Screenin:57 [facility] ED Fall Risk Assessment (Adult) History of falling in the last 3 months, bp including since admission No falls in past 3 months (0 pts) Confusion or Disorientation No (0 pts) Intoxicated or Sedated No (0 pts) Impaired Gait No (0 pts) Mobility Assist Device Used No (0 pt) Altered Elimination No (0 pt) Score/Fall Risk Level 0 - 2 = Low Risk Oriented to surroundings. Abuse screen: Denies threats or abuse. Denies injuries from another. Nutritional screening: No deficits noted. Tuberculosis screening: No symptoms or risk factors identified. Assessment: 18:30 General: SEE TRIAGE NOTE. bp 19:12 Reassessment: Patient appears in no apparent distress at this time. Patient and/or bm8 family updated on plan of care and expected duration. Pain level reassessed. Patient is alert, oriented x 3, equal unlabored respirations, skin warm/dry/pink. Pain: Complains of pain in abdomen and pelvis Pain currently is 9 out of 10 on a pain scale. Neuro: No deficits noted. Level of Consciousness is awake, alert, obeys commands, Oriented to person, place, time, situation, Appropriate for age. Cardiovascular: No deficits noted. Respiratory: No deficits noted. GI: Reports lower abdominal pain, upper abdominal pain, Pain is 9 out of 10 on a pain scale. : No signs and/or symptoms were reported regarding the genitourinary system. EENT: No signs and/or symptoms were reported regarding the EENT system. Derm: No signs and/or symptoms reported regarding the dermatologic system. Musculoskeletal: No signs and/or symptoms reported regarding the musculoskeletal system. 20:00 Reassessment: Patient appears in no apparent distress at this time. Patient and/or bm8 family updated on plan of care and expected duration. Pain level reassessed. Patient is alert, oriented x 3, equal unlabored respirations, skin warm/dry/pink. Pain: Complains of pain in abdomen Pain currently is 7 out of 10 on a pain scale. 21:00 Reassessment: Patient appears in no apparent distress at this time. No changes from bm8 previously documented assessment. Patient and/or family updated on plan of care and expected duration. Pain level reassessed. Patient is alert, oriented x 3, equal unlabored respirations, skin warm/dry/pink. 22:14 Reassessment: Patient appears in no apparent distress at this time. Patient and/or bm8 family updated on plan of care and expected duration. Pain level reassessed. Patient is alert, oriented x 3, equal unlabored respirations, skin warm/dry/pink. Patient states feeling better. Patient states symptoms have improved. Pain: Complains of pain in abdomen Pain currently is 3 out of 10 on a pain scale. 23:09 Reassessment: Patient appears in no apparent distress at this time. Patient and/or bm8 family updated on plan of care and expected duration. Pain level reassessed. Patient is alert, oriented x 3, equal unlabored respirations, skin warm/dry/pink. Patient states symptoms have improved. Vital Signs: 18:30 BP 139 / 65; Pulse 73; Resp 18; Temp 98.4; Pulse Ox 98% on R/A; Weight 86.18 kg; Height iw 5 ft. 11 in. ; Pain 10/10; 19:12 BP 154 / 89; Pulse 75; Resp 17; Temp 98.4; Pulse Ox 98% ; Pain 9/10; bm8 20:00 BP 138 / 74; Pulse 65; Resp 17; Temp 98.4; Pulse Ox 98% ; Pain 7/10; bm8 21:00 BP 134 / 71; Pulse 62; Resp 17; Temp 98.4; Pulse Ox 96% ; Pain 8/10; bm8 22:00 BP 152 / 75; Pulse 93; Resp 18; Temp 98.4; Pulse Ox 93% ; Pain 3/10; bm8 23:09 BP 145 / 85; Pulse 79; Resp 17; Temp 98.4; Pulse Ox 100% ; Pain 7/10; bm8 18:30 Body Mass Index 26.50 (86.18 kg, 180.34 cm) iw 18:30 Pain Scale: Adult iw 19:12 Pain Scale: Adult bm8 20:00 Pain Scale: Adult bm8 21:00 Pain Scale: Adult bm8 22:00 Pain Scale: Adult bm8 23:09 Pain Scale: Adult bm8 Sandra Coma Score: 19:12 Eye Response: spontaneous(4). Motor Response: obeys commands(6). Verbal Response: bm8 oriented(5). Total: 15. 20:00 Eye Response: spontaneous(4). Motor Response: obeys commands(6). Verbal Response: bm8 oriented(5). Total: 15. 21:00 Eye Response: spontaneous(4). Motor Response: obeys commands(6). Verbal Response: bm8 oriented(5). Total: 15. 22:00 Eye Response: spontaneous(4). Motor Response: obeys commands(6). Verbal Response: bm8 oriented(5). Total: 15. 23:09 Eye Response: spontaneous(4). Motor Response: obeys commands(6). Verbal Response: bm8 oriented(5). Total: 15. ED Course: 18:10 Patient arrived in ED. al6 18:12 Mayco Serrano PA is PHCP. cp 18:12 Rafael Romo MD is Attending Physician. cp 18:34 Triage completed. iw 18:37 Arm band placed on. iw 18:40 Travon Dias, LISE is Primary Nurse. bp 18:55 Inserted saline lock: 20 gauge in left forearm, using aseptic technique. Blood bp collected. Flushed with 10 mL NS. 18:57 Patient has correct armband on for positive identification. bp 19:00 Report received from LISE Cool. bm8 19:12 Client placed on continuous cardiac and pulse oximetry monitoring. NIBP monitoring bm8 applied. Pulse ox on. NIBP on. Door closed. Noise minimized. Warm blanket given. Pillow given. Verbal reassurance given. Head of bed elevated. 19:12 No provider procedures requiring assistance completed. Patient maintains SpO2 bm8 saturation greater than 95% on room air. 20:49 CT Abd/Pelvis - IV Contrast Only In Process Unspecified. EDMS 21:31 Alon Blanchard, RN is Hospitalizing Provider. cp 22:00 Provided Education on: need for admission. bm8 22:00 Patient admitted, IV remains in place. bm8 Administered Medications: 18:55 Drug: NS 0.9% IV 1000 ml IV at 1 bolus Per protocol; to be given as a bolus over 60 bp minutes Route: IV; Rate: 1 bolus; Site: left forearm; 22:13 Follow up: Response: No adverse reaction; IV Status: Completed infusion bm8 18:55 Drug: Diazepam IVP 5 mg IVP once Route: IVP; Site: left forearm; bp 22:13 Follow up: Response: No adverse reaction bm8 18:55 Drug: morphine IVP or IV 4 mg IVP once over 4 mins Route: IVP; Infused Over: 4 mins; bp Site: left forearm; 22:13 Follow up: Response: No adverse reaction bm8 19:12 Drug: morphine IVP or IV 4 mg IVP once over 4 mins Route: IVP; Infused Over: 4 mins; bm8 Site: left forearm; 22:13 Follow up: Response: No adverse reaction bm8 21:15 Drug: HYDROmorphone IVP 1 mg IVP once Route: IVP; Site: right antecubital; bm8 22:12 Follow up: Response: No adverse reaction bm8 Medication: 19:12 VIS not applicable for this client. bm8 Outcome: 21:32 Decision to Hospitalize by Provider. cp 23:57 Admitted to Med/surg accompanied by nurse, via wheelchair, with chart, bm8 23:57 Condition: stable 23:57 Instructed on follow up and referral plans. the need for admit, Demonstrated understanding of follow-up care, medications, 23:58 Patient left the ED. bm8 Signatures: Dispatcher [employer] EDMS Helena Haq, RN RN Mayco Markham, Travon Coffey cp, RN RN Osmany Valdez RN RN bm8 Ana Badillo6
[2025-03-25] MEDS ORDERED: KCL 20 MEQ/100 mL IVPB 100 ML IV SCH (23:00)
[2025-03-25] MEDS ORDERED: D5 0.45 NS 1,000 ML IV SCH (23:00)
[2025-03-25] MEDS ORDERED: D5 0.45 NS 1,000 ML with POTASSIUM CL 10 MEQ IV SCH (23:45)
--- NOTE | 2025-03-25 23:48 | P.HP ---
Certification for Inpatient Patient admitted to: Inpatient With expected LOS: >2 Midnights Patient will require the following post-hospital care: None Practitioner: I am a practitioner with admitting privileges, knowledge of patient current condition, hospital course, and medical plan of care. Services: Services provided to patient in accordance with Admission requirements found in Title 42 Section 412.3 of the Code of Federal Regulations Patient History Date of Service: 03/25/25 Reason for admission: Ventral hernia History of Present Illness: Patient is a pleasant 54-year-old male with past medical history of alcohol use disorder, liver cirrhosis, who presents to the ER today complaining of worsening abdominal pain with associated nausea but no vomiting. Patient states he has been having abdominal pain due to the ventral hernia for some time, states he was able to manage the pain, and not bothering him much, but states for the past 48 hours prior to arrival to ER his abdominal pain had progressively worsening, states today the pain was so severe, and describes the pain as constant, throbbing, aching pain with a pain scale of 10/10, aggravated by minimal strain on his abdomen, laughing, coughing, or lifting any object. There is an associated nausea but no vomiting at this time, no fever or chills. States his abdominal pain was so severe today which then prompted him to report to the ER. Patient denies of any associated chest pain or shortness of breath. According to report received from ER practitioner, states he called and spoke to Dr. Ramírez who plans to take the patient to surgery in a.m., requested patient to be kept n.p.o. after midnight and to start on antibiotics. Course in ER: CT abdomen and pelvis with contrast. Impression: Fatty liver with nodular contour compatible with cirrhosis. Mild adjacent fluid is present. Supraumbilical midline moderate sized fat-containing hernia with mild inflamed fat. Allergies No Known Allergies Allergy (Verified 03/26/25 00:57) Home Medications: NK [No Home Meds] 03/26/25 - Past Medical/Surgical History Diabetic: No -: umbilical hernia -: Left Knee Surgery - Social History Alcohol use: Yes CD- Drugs: No Caffeine use: Yes Physical Examination - Studies Laboratory Data (last 24 hrs) 03/25/25 03/25/25 18:46 18:46 WBC 5.00 Hgb 13.0 L Hct 36.6 L Plt Count 117 L Sodium 139 Potassium 3.5 BUN 9 Creatinine 0.82 Glucose 167 H Total Bilirubin 3.9 H AST 62 H ALT 21 Alkaline Phosphatase 165 H Lipase 40 Assessment and Plan - Plan Patient admitted inpatient with admitting diagnosis of ventral hernia, patient is n.p.o. after midnight and scheduled for surgery in a.m. by Dr. Ramírez. (1)Ventral hernia. -Morphine 4 mg IV as needed every 4 hours. -NPO after midnight. -D51/2 NS at 75 mL/ hr. -Zosyn 3.375 IV every 8 hours. -Consult Dr. Ramírez. (2)Nicotine use disorder. Patient is a heavy smoker for several years. Has accepted nicotine patch at this time. -Nicotine patch 21 mg apply daily. (3)Explained the entire treatment plan to the patient, and significant other present at bedside, solicit questions answered and voiced understanding. Discharge Plan: Home Plan to discharge in: Greater than 2 days - Advance Directives Does patient have a Living Will: No Does patient have a Durable POA for Healthcare: No - Code Status/Comfort Care Code Status Assessed: Yes Code Status: Full Code Critical Care: No Time Spent Managing Pts Care (In Minutes): 55
[2025-03-25] MEDS ORDERED: ACETAMINOPHEN 325 MG TABLET PO PRN (23:49)
[2025-03-26] MEDS: D5 0.45 NS 1,000 ML IV SCH (00:17)
[2025-03-26] MEDS: PIPER TAZO 3.375 GM in NA CHLORIDE 0.9% 100 ML IV ONE (00:18)
[2025-03-26] MEDS: MORPHINE 4 MG/ML SYR IV PRN (00:46)
[2025-03-26 01:31] VITALS: BMI 25.4
[2025-03-26] MEDS: ONDANSETRON 4 MG/2 ML VIAL IV PRN (06:34)
[2025-03-26 06:48] LABS: ALT/SGPT 20.0 U/L (16-61); AST/SGOT 57.0 U/L (15-37); Absolute Lymphocytes (CBC) 1.4 K/uL (0.7-4.9); Albumin 2.6 g/dL (3.4-5.0); Albumin/Globulin Ratio 0.7 (1.1-1.8); Alkaline Phosphatase 157.0 U/L (45-117); Anion Gap 10.5 mEq/L (5.0-15.0); BUN Blood Urea Nitrogen 8.0 mg/dL (7-18); Globulin 3.6 g/dL (2.3-3.5); Glucose Level 121.0 mg/dL (74-106); Hematocrit 39.4 % (39.6-49.0); Hemoglobin 13.8 g/dL (13.6-17.9); MCH 34.8 pg (27.0-35.0); MCHC 35.2 g/dL (32.0-36.0); MCV 99.0 fL (80-100); MPV 7.7 fL (7.6-11.3); Magnesium 1.6 mg/dL (1.6-2.4); Nucleated RBC Absolute Count 0.0 (0-0); Nucleated Red Blood Cells % 0.2 % (0-0); Potassium 3.5 mEq/L (3.5-5.1); RBC Red Blood Cell Count 3.98 M/uL (4.33-5.43); White Blood Count 5.40 thou/uL (4.3-10.9)
[2025-03-26] MEDS: NICOTINE 21 MG/PAT TD SCH (08:27)
[2025-03-26] MEDS: MAGNESIUM SULFATE 1 gm IVPB 1 GM/100 ML BAG IV ONE (08:27)
[2025-03-26] MEDS: POTASSIUM CL SA 10 MEQ TAB PO ONE (08:27)
[2025-03-26] MEDS: PIPER TAZO 3.375 GM in NA CHLORIDE 0.9% 100 ML IV SCH (09:48)
[2025-03-26 10:20] LABS: PT Prothrombin Time 16.4 SECONDS (10-13.0); Protime INR 1.47
[2025-03-26 10:20] LABS: Blood Morphology Comment NOT SEEN (NOT SEEN); Platelets Clumped FEW; White Blood Cell Scan OK (OK)
--- NOTE | 2025-03-26 10:42 | RAD REPORT ---
EXAMINATION: TWO VIEW CHEST XR CLINICAL INDICATION: Male, 54 years old. [facility] MAIN preop. Hypertension TECHNIQUE: 2 view radiographs of the chest were performed. COMPARISON: 01/08/2024 FINDINGS: The lungs are well inflated and clear. No pneumothorax or sizable effusion. The heart is normal in si ze. Mediastinal contours are unremarkable. IMPRESSION: No acute or significant abnormalities.
[2025-03-26] MEDS: Ringers Lactate 1,000 ML IV ONE (12:53)
[2025-03-26] MEDS ORDERED: MIDAZOLAM HCL 2 MG/2 ML INJ ONE (13:32)
[2025-03-26] MEDS ORDERED: FENTANYL CITR 100 MCG/2 ML ONE (13:32)
[2025-03-26] MEDS ORDERED: LIDOCAINE 2% MPF 5 ML VIAL ONE (13:33)
[2025-03-26] MEDS ORDERED: ROCURONIUM 50 MG/5 ML VIAL IV ONE (13:33)
[2025-03-26] MEDS ORDERED: GLYCOPYRROLATE 0.2 MG/ML SYR ONE ×2 (14:08→14:36)
[2025-03-26] MEDS ORDERED: ONDANSETRON 4 MG/2 ML VIAL ONE (14:32)
--- NOTE | 2025-03-26 14:36 | P.BOP ---
Preoperative diagnosis: incarcerated tender ventral hernia and incarcerated umbilical henia Postoperative diagnosis: same Primary procedure: 1. Laparoscopic repair incarcerated ventral hernia 4cm with mesh Secondary procedure: 2. Laparoscopic repair incarcerated umbilical hernia 2cm Estimated blood loss: <10cc Specimen: ventral hernia and umbilical hernia content Anesthesia: General Complications: None Implants: large ventralex ventral area Transferred to: Recovery Room Condition: Good
[2025-03-26] MEDS ORDERED: MORPHINE 10 MG/ML VIAL ONE (14:38)
--- NOTE | 2025-03-26 16:04 | P.PN ---
Subjective Date of Service: 03/26/25 Chief Complaint: Ventral hernia Patient complaining of pain in the epigastric area. It appears the anterior ventral hernia size has decreased since yesterday. Physical Examination - Vital Signs Temperature: 97.4 F Blood Pressure: 120/62 Pulse: 72 Respirations: 16 Pulse Ox (%): 94 - Studies Laboratory Data (last 24 hrs) 03/25/25 03/25/25 18:46 18:46 WBC 5.00 Hgb 13.0 L Hct 36.6 L Plt Count 117 L Sodium 139 Potassium 3.5 BUN 9 Creatinine 0.82 Glucose 167 H Total Bilirubin 3.9 H AST 62 H ALT 21 Alkaline Phosphatase 165 H Lipase 40 Assessment And Plan - Plan Physical examination General: Alert and oriented x3, NAD, HEENT: Conjunctiva not pale, anicteric sclera Neck: Supple, no elevated JVD Heart: Heart sounds 1 and 2 normal, regular rhythm, normal rate, no pedal edema Lungs: Clear to auscultation bilaterally, adequate breath sounds bilaterally, no rhonchi or crackles. Abdomen: Soft, nondistended, tender epigastric hernia, normal bowel sounds. Extremities: No tenderness, no deformity Skin: Normal skin turgor, no rash, no nodules or ulcers. Neuro: No focal motor deficit. Normal speech. Psychiatry: Normal mood, no agitation. Diagnosis Incarcerated ventral hernia Plan: Patient seen by general surgery Dr. Ramírez and laparoscopic ventral hernia repair performed. Continue analgesics as needed IV hydration. Patient started on full liquid diet. Diet advancement per surgery Empiric IV Zosyn Anticipating possible discharge in a.m. DVT prophylaxis: Lovenox
--- NOTE | 2025-03-26 16:51 | CON ---
Date of Consultation: 03/26/2025 Diagnosis: Incarcerated ventral hernia with tenderness. History Of Present Illness: This is a case of a 54-year-old patient with multiple medical problems i ncluding alcohol use disorder, liver cirrhosis, apparently esophageal varicosities, gastric ulcers. He has been recovering from all that, does not drink anymore. Last time, he had some issues with panda t several months ago and then treated with endoscopy. 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 He has that bulging in the ventral region before, but then yesterday sudden ly just came out and he did want to be reduced, so he came to the ER and diagnosed with incarcerated ventral hernia, and a surgical consult was obtained for an evaluation and treatment. It could not be reduced today. The pain is still there, so they asked me to evaluate for emergent surgery. Allergies: NONE. Medications: None. Past Medical History: Includes umbilical hernia and now this ventral hernia. Past Surgical History: Includes left knee surgery. Social History: He does not smoke. He does not drink. He used to drink alcohol, stopped about 2 mo nths ago. Family History: Noncontributory. Endoscopy, he does not recall his last colonoscopy. EGD was several months ago. Review of Systems: No nausea, vomiting. No dysuria, hematuria, hematochezia, or melena. Just abdominal pain. Not redu cible hernias. Ten points otherwise unremarkable. Physical Examination: Vital Signs: Temperature is 97.4 with pulse 63, blood pressure 110/54, respirations 12. General: The patient is awake, alert. HEENT: Pupils are equal and reactive. Anicteric. Neck: Supple. Chest: Clear. Abdomen: There is a ventral epigastric hernia, not reducible, tender. and he does not wan t to be touched them. The patient also has an umbilical hernia present. Laboratory Data: The CAT scan shows fatty liver with nodular contour, compatible with cirrhosis, mil d adjacent fluid present. There is a ventral hernia and umbilical hernia. The ventral hernia shows inflamed fat. Assessment: This is a 54-year-old patient with incarcerated, possibly strangulated ventral hernia. The patient also has an umbilical hernia. The area cannot be reduced, it is tender benefi ts, alternatives, and risks of laparoscopic versus open repair of ventral hernia and umbilical hernia with possible mesh fully discussed with the patient, which include, but not limited to infection, bl eeding, damage to adjacent structures, anesthesia complication, recurrence, IL, and even . He a lso understands this may not any relieve symptoms. He might need more than one surgical intervention . He understands we may or may not use mesh in that region, so pros and cons of mesh were discussed with the patient. All the questions answered to his satisfaction. He signed a consent. He was edgardo gently booked in OR. TEJAS/STEVE Voice ID: [id number] Report ID: [id number]
--- NOTE | 2025-03-26 22:17 | OP ---
Date of Procedure: 03/26/2025 Surgeon: Harrison Ramírez MD Preoperative Diagnoses: Incarcerated tender ventral hernia and incarcerated umbilical hernia. Postoperative Diagnoses: Incarcerated tender ventral hernia and incarcerated umbilical hernia. Procedures: 1. Laparoscopic repair of incarcerated ventral hernia about 4 cm with mesh. 2. Laparoscopic repair of incarcerated umbilical hernia about 3 cm. Estimated Blood Loss: Less than 10 cc. Specimens: Ventral hernia and umbilical hernia contents. These were two different locations. Anesthesia: General plus local. Implants: A large Ventralex mesh in the ventral region. Indications: This is a case of a 54-year-old patient who came to us with an incarcerated ventral her ryan, fluid present, unable to save his intestines there, very tender. So, he was admitted to the [facility] for a hernia repair emergently. The patient also has an umbilical hernia. We may use that her ryan also to put our trocars through to refix the hernia which is in the ventral epigastric region. T he benefits, alternatives, and risks of laparoscopic possible open repair with possible mesh use of a ventral umbilical hernia fully explained, which include, but not limited to, infection, bleeding, da mage to adjacent structures, anesthesia complication, recurrence, NM, and even . He also unders tands this may not relieve any symptoms. He might need more than one surgical intervention. The pos sible mesh use was discussed with the patient. All questions were answered to his satisfaction. He signed a consent. Description Of Procedure: The patient was brought to the operating room, placed in supine position. Anesthesia was induced without complication. Abdominal area was prepped and draped in a sterile fas hion. Local anesthetic was applied after a time-out. We made an incision in the umbilical region, f ound the umbilical hernia in that area, opened the hernia sac, removed the hernia sac, and then put V icryl #1 inside of the fascia. The edges looked strong. So we used that to put a Jody trocar and get access to the abdomen. By doing that, we were able to put another 5 mm trocar in the left and ri ght side of the abdomen under direct visualization. I then visualized the center. There was a combi nation of omentum with a twisted falciform ligament going to the ventral hernia. As much as I pulled it, I cannot push it down and reduce that even laparoscopically. So I made an incision on the ventr al region to be able to recognize that area too and then release the content. Some of them have to b e ligated with the help of 0 silk. The rest of the falciform ligament was left back to reduce after making sure there was no bleeding. The fascial edges were cleaned. We noticed the fascial edges to be friable. So, we are going to reinforce this with a mesh. So, we cleaned the fascial edges, put # 1 Prolene in a [id number] fashion multiple times to approximate the fascia, but not closed it ye t since we used this opening to drop a large Ventralex mesh in that area, so we can cover the defects by 3-5 cm overlap. Once we had the mesh in, we pulled the straps. We tied all the sutures except o ne and then with laparoscopically and affixed the Ventralex mesh to the anterior abdominal wall with the help of SorbaFix circumferentially. After that, we ligated the mesh straps and then tied the las t #1 Prolene. Area was irrigated. We noticed the area of the falciform ligament and adhesions to be with no bleeding. The mesh looked nice and flat against the abdominal wall since we put SorbaFix ci rcumferentially. The area of the umbilical region shows no bleeding. At that moment, I proceeded th en to deflate and remove the trocars under direct visualization and deflated pneumoperitoneum. Close d the umbilical fascial hernia with #1 Vicryl. Then closed both defects. These were two different i ncisions on the skin. The ventral region closed with 3-0 chromic and clare. The umbilical area wi th the same way. The patient tolerated the procedure well. The patient was sent in his way to Recovery in stable conditio n. TEJAS/STEVE Voice ID: [id number] Report ID: [id number]
[2025-03-26] MEDS: HYDROCODONE/APAP 5/325 MG TAB PO PRN (22:59)
[2025-03-26 23:31] VITALS: O2SAT 98
[2025-03-27 05:21] LABS: Absolute Lymphocytes (CBC) 0.5 K/uL (0.7-4.9); Hematocrit 41.0 % (39.6-49.0); Hemoglobin 14.0 g/dL (13.6-17.9); MCH 34.0 pg (27.0-35.0); MCHC 34.1 g/dL (32.0-36.0); MCV 99.5 fL (80-100); MPV 8.1 fL (7.6-11.3); Nucleated RBC Absolute Count 0.0 (0-0); Nucleated Red Blood Cells % 0.0 % (0-0); RBC Red Blood Cell Count 4.12 M/uL (4.33-5.43); White Blood Count 9.30 thou/uL (4.3-10.9)
[2025-03-27 05:26] LABS: ALT/SGPT 27.0 U/L (16-61); AST/SGOT 51.0 U/L (15-37); Albumin 2.9 g/dL (3.4-5.0); Albumin/Globulin Ratio 0.7 (1.1-1.8); Alkaline Phosphatase 141.0 U/L (45-117); Anion Gap 8.7 mEq/L (5.0-15.0); BUN Blood Urea Nitrogen 11.0 mg/dL (7-18); Globulin 4.0 g/dL (2.3-3.5); Glucose Level 123.0 mg/dL (74-106); Magnesium 1.8 mg/dL (1.6-2.4); Potassium 4.7 mEq/L (3.5-5.1)
[2025-03-27] MEDS: MAGNESIUM SULFATE 1 gm IVPB 1 GM/100 ML BAG IV ONE (06:04)
[2025-03-27 07:24] LABS: Differential Total Cells Count 100
[2025-03-27 07:25] LABS: Anisocytosis SLIGHT; Blood Morphology Comment NOTED (NOT SEEN); Macrocytosis 1+; Segmented Neutrophils 85 % (40-80)
[2025-03-27 08:58] VITALS: BP 148/73; TEMP 97.6
[2025-03-27] MEDS: ENOXAPARIN 40 MG/0.4 ML SQ SCH (09:56)
--- NOTE | 2025-03-27 11:48 | P.DS ---
Admission Date: 03/25/25 Discharge Date: 03/27/25 Disposition: ROUTINE DISCHARGE Discharge Condition: FAIR Reason for Admission: Ventral hernia Brief History of Present Illness: 54-year-old man with past medical history of alcohol use disorder, liver cirrhosis, presented to the ER complaining of worsening abdominal pain with associated nausea. Patient reported abdominal pain from his ventral hernia. CT abdomen and pelvis done in the emergency department showed supraumbilical midline moderate-sized fat-containing hernia with mild inflamed fat. Dr. Ramírez was contacted and patient hospitalized for further management. Hospital Course: Diagnosis Incarcerated ventral hernia Incarcerated umbilical hernia Liver cirrhosis Patient admitted to the medical floor and started on IV antibiotics. Patient was evaluated by general surgery Dr. Ramírez who performed laparoscopic incarcerated ventral hernia and incarcerated umbilical hernia repair. Patient was monitored overnight, started on a diet which he tolerated. Patient evaluated by Dr. Ramírez and deemed stable for discharge. Vital Signs/Physical Exam: Temp Pulse Resp BP Pulse Ox 97.6 F 67 19 148/73 H 96 03/27/25 08:00 03/27/25 08:00 03/27/25 08:00 03/27/25 08:00 03/27/25 08:00 General: Alert, In no apparent distress, Oriented x3 HEENT: Mucous membr. moist/pink, Sclerae nonicteric Neck: Supple, JVD not distended Respiratory: Clear to auscultation bilaterally, Normal air movement Cardiovascular: Regular rate/rhythm, Normal S1 S2 Gastrointestinal: Normal bowel sounds, Soft and benign, Non-distended Musculoskeletal: No swelling Integumentary: No rashes, No cyanosis Neurological: Normal strength at 5/5 x4 extr Laboratory Data at Discharge: WBC 9.30 thou/uL (4.3-10.9) 03/27/25 04:31 Hgb 14.0 g/dL (13.6-17.9) 03/27/25 04:31 Hct 41.0 % (39.6-49.0) 03/27/25 04:31 Plt Count 107 thou/uL (152-406) L 03/27/25 04:31 PT 16.4 SECONDS (10-13.0) H 03/26/25 10:07 INR 1.47 03/26/25 10:07 Sodium 139 mEq/L (136-145) 03/27/25 04:31 Potassium 4.7 mEq/L (3.5-5.1) D 03/27/25 04:31 BUN 11 mg/dL (7-18) 03/27/25 04:31 Creatinine 0.80 mg/dL (0.70-1.30) 03/27/25 04:31 Glucose 123 mg/dL (74-106) H 03/27/25 04:31 Magnesium 1.8 mg/dL (1.6-2.4) 03/27/25 04:31 Total Bilirubin 4.4 mg/dL (0.2-1.0) H 03/27/25 04:31 AST 51 U/L (15-37) H 03/27/25 04:31 ALT 27 U/L (16-61) 03/27/25 04:31 Alkaline Phosphatase 141 U/L (45-117) H 03/27/25 04:31 Lipase 40 U/L (13-75) 03/25/25 18:46 Home Medications: Hydrocodone 5/APAP 325 [[place] 5/325*] 1 tab PO Q4H PRN #15 tab 03/27/25 New Medications: Hydrocodone 5/APAP 325 [[place] 5/325*] 1 tab PO Q4H PRN #15 tab PRN Reason: Pain Physician Discharge Instructions: Keep surgical area dry and clean for 48h then may remove outer dressing and shower. Then , apply antibiotic ointment to clare and bandaid Diet: Regular Activity: No lifting more than 10 lbs Followup: Harrison Ramírez MD [ACTIVE - CAN ADMIT] - 1 Week NONE,NONE [Primary Care Provider] -
--- NOTE | 2025-03-27 12:05 | P.PN ---
Subjective Date of Service: 03/27/25 Chief Complaint: Ventral hernia repair Subjective: Tolerating diet, Ambulating, Improving Review of Systems General: Unremarkable Eyes: Unremarkable ENT: Unremarkable Respiratory: Unremarkable Cardiovascular: Unremarkable Gastrointestinal: Unremarkable Genitourinary: Unremarkable Musculoskeletal: Unremarkable Integumentary: Unremarkable Neurological: Unremarkable Physical Examination - Vital Signs Temperature: 97.6 F Blood Pressure: 148/73 Pulse: 67 Respirations: 19 Pulse Ox (%): 96 - Physical Exam General: Alert, In no apparent distress, Oriented x3, Cooperative HEENT: Normocephalic, PERRLA Neck: Supple Respiratory: Normal air movement Gastrointestinal: Soft and benign Integumentary: No rashes, No breakdown Neurological: Normal gait, Normal speech Assessment And Plan - Plan No heavy lifting 20lb F/u at office one week . Pt to call for appt
== END 2025-03-27 12:57 | disposition home or self-care (01) | DRG 355 ==
LOC: ER 18:07 → ERHOLD 22:58 → 2ND 23:46
PROVIDERS: ADMIT Internal Medicine; ATTEND Surgery
PROC: 0WQF4ZZ Repair Abdominal Wall, Percutaneous Endoscopic Approach (ICD-10-PCS; 2025-03-26)
PROC: 0WUF4JZ Supplement Abdominal Wall with Synthetic Substitute, Percutaneous Endoscopic Approach (ICD-10-PCS; principal; 2025-03-26 14:00)
DX: K43.6 Other and unspecified ventral hernia with obstruction, without gangrene (principal); K42.0 Umbilical hernia with obstruction, without gangrene; K74.60 Unspecified cirrhosis of liver; Z98.890 Other specified postprocedural states; Z72.0 Tobacco use; Z71.6 Tobacco abuse counseling; F10.90 Alcohol use, unspecified, uncomplicated; K76.0 Fatty (change of) liver, not elsewhere classified
CPT/HCPCS: 36415; 71046; 74177; 80053; 83690; 83735; 85025; 85610; 88302; 93005; 94010; 99285; J1100; J1171; J1650; J2003; J2250; J2405; J2543; J2704; J3010; J3360; J3475; J7030; J7120; J7799; Q9967

== ENCOUNTER 2025-05-17 21:12 | Emergency (ER) | payer SELFPAY ==
[2025-05-17] MEDS ORDERED: ONDANSETRON 4 MG/2 ML VIAL ONE (21:34)
[2025-05-17] MEDS ORDERED: MORPHINE 4 MG/ML SYR ONE ×2 (21:34→23:37)
[2025-05-17] MEDS ORDERED: NA CHLORIDE 0.9% 1,000 ML ONE (21:34)
[2025-05-17 22:05] LABS: Absolute Lymphocytes (CBC) 1.5 K/uL (0.7-4.9); Hematocrit 40.8 % (39.6-49.0); Hemoglobin 14.2 g/dL (13.6-17.9); MCH 34.7 pg (27.0-35.0); MCHC 34.7 g/dL (32.0-36.0); MCV 100.0 fL (80-100); MPV 7.6 fL (7.6-11.3); Nucleated RBC Absolute Count 0.0 (0-0); Nucleated Red Blood Cells % 0.0 % (0-0); RBC Red Blood Cell Count 4.08 M/uL (4.33-5.43); White Blood Count 6.30 thou/uL (4.3-10.9)
[2025-05-17 22:26] LABS: ALT/SGPT 17.0 U/L (16-61); AST/SGOT 51.0 U/L (15-37); Albumin 3.2 g/dL (3.4-5.0); Albumin/Globulin Ratio 0.7 (1.1-1.8); Alkaline Phosphatase 201.0 U/L (45-117); Anion Gap 7.9 mEq/L (5.0-15.0); BUN Blood Urea Nitrogen 10.0 mg/dL (7-18); Globulin 4.3 g/dL (2.3-3.5); Glucose Level 97.0 mg/dL (74-106); Potassium 3.9 mEq/L (3.5-5.1)
--- NOTE | 2025-05-18 01:46 | RAD REPORT ---
Clinical Indication: IV ONLY Bed Name: 13. Abdominal pain Comparison: May 05, 2025. TECHNIQUE: Helical imaging was performed from diaphragm through the pelvis after IV contrast administ ration with multiplanar reformations obtained. Coronal and sagittal reformats were performed and provided as separate series. IV CONTRAST: IV contrast dose was not provided GI CONTRAST: GI contrast was not administered CT Radiation Dose: DLP = 992 mGy-cm All CT scans at this location are performed using dose optimization techniques as appropriate to perf orm the study. Radiation dose reduction technique was utilized including one or more of the following: Automated exp osure control, adjustment of the mA and/or kV according to patient size and use of iterative reconstruction technique. FINDINGS: LOWER CHEST: The visualized lung bases are clear. LIVER: Cirrhotic liver. The liver parenchyma is heterogeneous with some focal areas of hypodensity. U nderlying hepatic lesion such as hepatocellular carcinoma cannot be completely excluded. GALLBLADDER: Thickening of the gallbladder wall is nonspecific in the setting of cirrhosis and ascite s. INTRAHEPATIC BILE DUCT AND EXTRAHEPATIC BILE DUCT: Unremarkable. PANCREAS: Unremarkable. SPLEEN: The spleen is enlarged measuring 15.5 cm in maximum dimension. ADRENALS: Unremarkable. KIDNEYS AND URETERS: The renal contours are normal. There is no hydronephrosis. No calcified jelly l stones are noted. No surrounding fat stranding is noted. STOMACH: Evaluation of the stomach and bowel is limited due to lack of oral contrast. No gross abno rmalities of the stomach are noted. Small esophageal varices are noted. Small gastrohepatic varices are also seen. BOWEL: Fluid distended small bowel is noted with slightly thickened meek and valvulae conniventes. T his is within the left mid abdomen. The colonic loops in the abdomen and pelvis appear unremarkable. APPENDIX: The appendix is normal in caliber without surrounding inflammatory changes. PERITONEUM AND RETROPERITONEUM: Small amount of ascites is noted in the abdomen. No free air is noted . No loculated fluid collection is noted. There is no aortic aneurysm or dissection. Moderate atherosclerotic disease is noted in the aortoiliac vessels. PELVIS: The prostate is unremarkable. BLADDER: Unremarkable LYMPH NODES: Unremarkable. OSSEOUS STRUCTURES: No acute abnormality seen. SOFT TISSUES: Small right inguinal hernia is noted containing small amount of colon. Ascites is noted in the distal right inguinal canal. No evidence of obstruction is seen. Small anterior abdominal wall hernia is noted containing fat only. Small amount of fat stranding and fluid is noted, nonspecif ic in the setting of ascites. IMPRESSION: 1. No acute abnormality of the abdomen or pelvis is noted. 2. Cirrhosis with evidence of portal hypertension. 3. Small esophageal and gastrohepatic varices. 4. Fluid distended small bowel could be consistent with ileus and/or enteritis. Electronically signed by: Santo Santana MD 05/18/2025 01:42 AM CDT RP Due to temporary technical issues with the PACS/Carmine reporting system, reports are being carlee d by the in-house radiologist without review as a courtesy to ensure prompt reporting the interpreting radiologist is fully responsible for the content of the report. Transcribed Date/Time: 05/18/2025 1:46 AM
--- NOTE | 2025-05-18 01:58 | EDPHYS ---
Physician Documentation [facility] Name: Omi Tyson Jr Age: 54 yrs Sex: Male : 1970 Arrival Date: 05/17/2025 Time: 21:12 Bed 13 Private MD: ED Physician Chalo Sage HPI: 05/17 23:23 This 54 yrs old Male presents to ER via Ambulatory with complaints of Abdominal Pain - kb HERNIA. 23:23 Patient is a 54-year-old male who presents for pain to right groin. States he has a kb inguinal hernia that is getting worse. Patient has scheduled hernia repair with Dr. Ramírez on May 23. Patient states that he coughed tonight and caused hernia to get bigger and become more painful. Also reports he feels like a fluid sensation around the hernia.. Historical: - Allergies: 21:50 NKDA; ha1 - PMHx: 21:50 Alcoholism; cirrhosis of liver; ha1 - PSHx: 21:50 left knee; ha1 - Immunization history:: Adult Immunizations unknown. - Infectious Disease History:: Denies. - Social history:: Smoking status: unknown. ROS: 23:23 Constitutional: As per HPI kb Exam: 23:23 Constitutional: This is a well developed, well nourished patient who is awake, alert, kb and in no acute distress. Head/Face: Normocephalic, atraumatic. ENT: Moist Mucous membranes Cardiovascular: Regular rate Respiratory: Respirations even and unlabored. No increased work of breathing. Talking in full sentences Skin: Warm, dry with normal turgor. Normal color. MS/ Extremity: Pulses equal, no cyanosis. Neurovascular intact. Full, normal range of motion. Neuro: Awake and alert, GCS 15, oriented to person, place, time, and situation. 23:23 Abdomen/GI: Inspection: abdomen appears normal, Bowel sounds: normal, Palpation: abdomen is soft and non-tender, in all quadrants, Hernia: noted in the right inguinal area, tenderness, that is mild, Hernia reduced easily, Vital Signs: 21:23 BP 141 / 68; Pulse 69; Resp 18; Temp 98.1; Pulse Ox 100% ; Weight 83.91 kg; Height 5 cg ft. 11 in. ; Pain 10/10; 22:00 BP 179 / 76; Pulse 66; Resp 18; Pulse Ox 100% on R/A; kj2 23:00 BP 161 / 73; Pulse 69; Resp 18; Pulse Ox 98% ; kj2 05/18 00:00 BP 136 / 75; Pulse 70; Resp 18; Pulse Ox 94% ; cp4 01:00 BP 142 / 72; Pulse 67; Resp 18; Pulse Ox 94% ; cp4 02:27 BP 142 / 78; Pulse 66; Resp 18; Pulse Ox 94% ; cp4 05/17 21:23 Body Mass Index 25.80 (83.91 kg, 180.34 cm) 05/17 21:23 Pain Scale: Adult cg Procedures: 05/17 23:24 Performed Reduced right inguinal hernia without difficulty. kb MDM: 21:20 Medical Screening Exam initiated 05/18 01:55 Differential diagnosis: non-specific abd pain, hernia. Data reviewed: vital signs, kb nurses notes. Consideration of Admission/Observation Escalation of care including admission/observation considered. admission considered but pt hernia easily reduced, pt has follow up for hernia repair on 05/23/25, pain is controlled. Pt educated on return precautions. Pt has no symptoms of enteritis or ileus. . Management of patient was discussed with the following: Dr Garland Historians other than the Patient: Spouse/Significant Other: . Counseling: I had a detailed discussion with the patient and/or guardian regarding the historical points, exam findings, and any diagnostic results supporting the discharge/admit diagnosis, lab results, radiology results, the need for outpatient follow up, a general surgeon, to return to the emergency department if symptoms worsen or persist or if there are any questions or concerns that arise at home. 05/17 21:34 Order name: CBC with Diff; Complete Time: 22:18 kb 05/17 21:34 Order name: CMP; Complete Time: 22:37 kb 05/17 22:50 Order name: CT Abd/Pelvis - IV Contrast Only 05/17 21:34 Order name: IV Saline Lock; Complete Time: 21:49 kb 05/17 21:34 Order name: Labs collected and sent; Complete Time: 21:49 kb 05/17 21:49 Order name: Misc. Order: place pt in gown please; Complete Time: 21:52 kb Administered Medications: 05/17 21:54 Drug: Ondansetron IVP 4 mg IVP once; over 2 minutes Route: IVP; Site: right antecubital;kj2 23:49 Follow up: Response: No adverse reaction kj2 21:54 Drug: morphine IVP or IV 4 mg IVP once over 4 mins Route: IVP; Infused Over: 4 mins; kj2 Site: right antecubital; 23:49 Follow up: Response: No adverse reaction kj2 21:54 Drug: NS 0.9% IV 1000 ml IV at 1 bolus Per protocol; to be given as a bolus over 60 kj2 minutes Route: IV; Rate: 1 bolus; Site: right antecubital; 23:49 Follow up: IV Status: Completed infusion kj2 23:48 Drug: morphine IVP or IV 4 mg IVP once over 4 mins Route: IVP; Infused Over: 4 mins; kj2 Site: right antecubital; 05/18 01:02 Follow up: Response: No adverse reaction; Pain is decreased cp4 Disposition: 19:48 Co-signature as Attending Physician, Chalo Sage MD I agree with the assessment sp4 and plan of care. I reviewed the patient's care provided by the Advanced Practice Provider and agree with the diagnosis and treatment plan. Disposition Summary: 05/18/25 01:57 Discharge Ordered Notes: Location: Home kb Condition: Stable kb Diagnosis - Unilateral inguinal hernia, without obstruction or gangrene kb Followup: kb - With: Emergency Department - When: As needed - Reason: Worsening of condition Followup: kb - With: Private Physician - When: 2 - 3 days - Reason: Recheck today's complaints, Continuance of care, Re-evaluation by your physician Discharge Instructions: - Discharge Summary Sheet kb - Inguinal Hernia, Adult, [id number] kb Forms: - Work release form kb - Medication Reconciliation Form kb - Antibiotic Education kb - Prescription Opioid Use kb - Patient Portal Instructions kb - Leadership Thank You Letter kb Signatures: Dispatcher [employer] EDYumiko Sommer FNP-C FNP-Yany Nogueira, RN RN ha1 Chalo Sage MD MD sp4 Matilde Booker RN RN kj2 [place] cp4 Corrections: (The following items were deleted from the chart) 05/17 21:34 21:34 CBC+H.LAB.BRZ ordered. EDMS EDMS 21:34 21:34 COMPREHENSIVE METABOLIC PANEL+C.LAB.BRZ ordered. EDMS EDMS 22:50 22:50 Abdomen Pelvis W Con+CT.RAD.BRZ ordered. EDMS EDMS 23:25 23:23 Patient is a 54-year-old male who presents for pain to right groin. States he has kb a inguinal hernia that is getting worse. Patient has scheduled hernia repair with Dr. Ramírez on May 23.. kb
--- NOTE | 2025-05-18 01:58 | ER ---
Nurse's Notes [facility] Name: Omi Tyson Jr Age: 54 yrs Sex: Male : 1970 Arrival Date: 05/17/2025 Time: 21:12 Bed 13 Private MD: Diagnosis: Unilateral inguinal hernia, without obstruction or gangrene Presentation: 05/17 21:23 Chief complaint: Patient states: c/o right inguinal hernia pain and swelling. Scheduled cg to have surgery May 3, but pain has increased. Coronavirus screen: Vaccine status: Patient reports being unvaccinated. Ebola Screen: Patient negative for fever greater than or equal to 101.5 degrees Fahrenheit, and additional compatible Ebola Virus Disease symptoms. Initial Sepsis Screen: Does the patient meet any 2 criteria? No. Patient's initial sepsis screen is negative. Risk Assessment: Do you want to hurt yourself or someone else? Patient reports no desire to harm self or others. 21:23 Method Of Arrival: Ambulatory cg 21:23 Acuity: NILTON 3 cg 21:59 Initial Sepsis Screen: Does the patient have a suspected source of infection? No. kj2 Patient's initial sepsis screen is negative. Onset of symptoms was May 17, 2025. Triage Assessment: 21:50 General: Appears uncomfortable, Behavior is cooperative. Pain: Complains of pain in ha1 pelvis Pain currently is 9 out of 10 on a pain scale. Quality of pain is described as throbbing. Neuro: Level of Consciousness is awake, alert, obeys commands, Oriented to person, place, time, situation. Cardiovascular: Patient's skin is warm and dry. Respiratory: Airway is patent Respiratory effort is even, unlabored, Respiratory pattern is regular, symmetrical. GI: Abdomen is round Reports LOWER ABDOMINAL PAIN DUE TO HERNIA. Derm: Skin is pink, warm \T\ dry. Historical: - Allergies: 21:50 NKDA; ha1 - PMHx: 21:50 Alcoholism; cirrhosis of liver; ha1 - PSHx: 21:50 left knee; ha1 - Immunization history:: Adult Immunizations unknown. - Infectious Disease History:: Denies. - Social history:: Smoking status: unknown. Screenin:49 [facility] ED Fall Risk Assessment (Adult) History of falling in the last 3 months, ha1 including since admission No falls in past 3 months (0 pts) Confusion or Disorientation No (0 pts) Intoxicated or Sedated No (0 pts) Impaired Gait No (0 pts) Mobility Assist Device Used No (0 pt) Altered Elimination No (0 pt) Score/Fall Risk Level 0 - 2 = Low Risk Oriented to surroundings, Maintained a safe environment, Educated pt \T\ family on fall prevention, incl call for assistance when getting out of bed, Hourly rounding (assess needs \T\ fall precautionary measures) done. Abuse screen: Denies threats or abuse. Denies injuries from another. Nutritional screening: No deficits noted. Tuberculosis screening: No symptoms or risk factors identified. Assessment: 21:35 General: Appears in no apparent distress. Behavior is cooperative. Pain: Complains of kj2 pain in pelvis Pain currently is 9 out of 10 on a pain scale. Neuro: Level of Consciousness is awake, alert, obeys commands, Oriented to person, place, time, situation. Cardiovascular: Patient's skin is warm and dry. Respiratory: Airway is patent Respiratory effort is unlabored. GI: No signs and/or symptoms were reported involving the gastrointestinal system. Abdomen is tender to palpation in lower right quadrant. : No signs and/or symptoms were reported regarding the genitourinary system. 21:59 Reassessment: Patient appears in no apparent distress at this time. Patient and/or kj2 family updated on plan of care and expected duration. Pain level reassessed. Patient is alert, oriented x 3, equal unlabored respirations, skin warm/dry/pink. 23:00 Reassessment: Patient appears in no apparent distress at this time. Patient and/or kj2 family updated on plan of care and expected duration. Pain level reassessed. Patient is alert, oriented x 3, equal unlabored respirations, skin warm/dry/pink. 23:49 Reassessment: Patient appears in no apparent distress at this time. Patient and/or kj2 family updated on plan of care and expected duration. Pain level reassessed. 05/18 00:05 Reassessment: Patient appears in no apparent distress at this time. No changes from cp4 previously documented assessment. Patient and/or family updated on plan of care and expected duration. Pain level reassessed. Patient is alert, oriented x 3, equal unlabored respirations, skin warm/dry/pink. GI: Bowel sounds present X 4 quads. Vital Signs: 05/17 21:23 BP 141 / 68; Pulse 69; Resp 18; Temp 98.1; Pulse Ox 100% ; Weight 83.91 kg; Height 5 cg ft. 11 in. ; Pain 10/10; 22:00 BP 179 / 76; Pulse 66; Resp 18; Pulse Ox 100% on R/A; kj2 23:00 BP 161 / 73; Pulse 69; Resp 18; Pulse Ox 98% ; kj2 05/18 00:00 BP 136 / 75; Pulse 70; Resp 18; Pulse Ox 94% ; cp4 01:00 BP 142 / 72; Pulse 67; Resp 18; Pulse Ox 94% ; cp4 02:27 BP 142 / 78; Pulse 66; Resp 18; Pulse Ox 94% ; cp4 05/17 21:23 Body Mass Index 25.80 (83.91 kg, 180.34 cm) cg 05/17 21:23 Pain Scale: Adult cg ED Course: 05/17 21:15 Patient arrived in ED. sj2 21:20 Yumiko Philip [facility]-C [facility] kb 21:20 Chalo Sage MD is Attending Physician. kb 21:33 Triage completed. cg 21:35 Patient has correct armband on for positive identification. Placed in gown. Bed in low kj2 position. Call light in reach. Adult w/ patient. Provided Education on: call light. 21:41 Matilde Booker, DAVID is Primary Nurse. kj2 21:49 CBC with Diff Sent. ha1 21:49 CMP Sent. ha1 21:52 Inserted saline lock: 20 gauge in right antecubital area, using aseptic technique. ha1 Blood collected. Flushed with 10 mL NS. 21:59 Arm band placed on Patient placed in the treatment room. kj2 23:28 CT Abd/Pelvis - IV Contrast Only In Process Unspecified. EDMS 05/18 00:05 Report given to david Marshall. kj2 02:27 No provider procedures requiring assistance completed. intact, bleeding controlled, No cp4 redness/swelling at site. Pressure dressing applied. Administered Medications: 05/17 21:54 Drug: Ondansetron IVP 4 mg IVP once; over 2 minutes Route: IVP; Site: right antecubital;kj2 23:49 Follow up: Response: No adverse reaction kj2 21:54 Drug: morphine IVP or IV 4 mg IVP once over 4 mins Route: IVP; Infused Over: 4 mins; kj2 Site: right antecubital; 23:49 Follow up: Response: No adverse reaction kj2 21:54 Drug: NS 0.9% IV 1000 ml IV at 1 bolus Per protocol; to be given as a bolus over 60 kj2 minutes Route: IV; Rate: 1 bolus; Site: right antecubital; 23:49 Follow up: IV Status: Completed infusion kj2 23:48 Drug: morphine IVP or IV 4 mg IVP once over 4 mins Route: IVP; Infused Over: 4 mins; kj2 Site: right antecubital; 05/18 01:02 Follow up: Response: No adverse reaction; Pain is decreased cp4 Medication: 05/17 21:59 VIS not applicable for this client. kj2 Outcome: 05/18 01:57 Discharge ordered by . kb 02:27 Discharged to home ambulatory, cp4 02:27 Condition: stable 02:27 Discharge instructions given to patient, family, Instructed on discharge instructions, follow up and referral plans. Demonstrated understanding of instructions, follow-up care, 02:28 Patient left the ED. cp4 Signatures: Dispatcher [employer] EDMS Yumiko Philip, COREY STONEP-Eli Connell RN DAVID Yany Liang RN RN [email or web address] [place] cp4 Matilde Booker RN RN kj2 Maryam Rhodes [facility]
[2025-05-18 03:09] VITALS: TEMP 98.1
[2025-05-18 03:13] VITALS: O2SAT 94
[2025-05-18 03:16] VITALS: BP 142/78
== END 2025-05-18 02:28 | disposition home or self-care (01) ==
LOC: ER 21:12
DX: K40.90 Unilateral inguinal hernia, without obstruction or gangrene, not specified as recurrent (principal); F10.20 Alcohol dependence, uncomplicated
CPT/HCPCS: 36415; 74177; 80053; 85025; 96361; 96374; 96375; 99284; J2405; J7030; Q9967

== ENCOUNTER 2025-05-26 10:10 | Day surgery (SDC) | payer SELFPAY ==
[2025-05-26] MEDS ORDERED: NEOSTIGMINE 1 MG/ML -10 ML VIAL ONE (13:30)
[2025-05-26] MEDS ORDERED: GLYCOPYRROLATE 0.2 MG/ML SYR ONE (13:30)
[2025-05-26] MEDS ORDERED: ONDANSETRON 4 MG/2 ML VIAL ONE (13:30)
[2025-05-26] MEDS ORDERED: LIDOCAINE 2% MPF 5 ML VIAL ONE (13:30)
[2025-05-26] MEDS ORDERED: ROCURONIUM 50 MG/5 ML VIAL IV ONE (13:30)
[2025-05-26] MEDS ORDERED: FENTANYL CITR 100 MCG/2 ML ONE ×2 (13:31→14:14)
[2025-05-26] MEDS ORDERED: MIDAZOLAM HCL 2 MG/2 ML INJ ONE (13:31)
[2025-05-26] MEDS: Ringers Lactate 1,000 ML IV ONE (13:39)
[2025-05-26] MEDS: CEFAZOLIN SODIUM 1 GM/VIAL ONE (13:45)
[2025-05-26] MEDS ORDERED: EPHEDRINE SULF 50 MG/ML VIAL ONE (14:00)
[2025-05-26] MEDS ORDERED: Mastisol Adhesive Liq ONE (14:40)
--- NOTE | 2025-05-26 14:46 | P.BOP ---
Preoperative diagnosis: tender reducible right inguinal hernia Postoperative diagnosis: same Primary procedure: Laparoscopic repair of tender reducible right inguinal hernia with mesh Estimated blood loss: <10cc Specimen: none Findings: RIH Anesthesia: General Complications: None Transferred to: Recovery Room Condition: Good
[2025-05-26 15:02] VITALS: TEMP 97.2
[2025-05-26] MEDS: HYDROCODONE/APAP 10/325 TAB ONE (15:52)
[2025-05-26 16:00] VITALS: BP 122/64; O2SAT 97
[2025-05-26] MEDS ORDERED: TAMSULOSIN 0.4 MG SR CAP ONE (16:14)
[2025-05-26] MEDS: TAMSULOSIN 0.4 MG SR CAP PO ONE (16:18)
--- NOTE | 2025-05-27 10:58 | OP ---
Date of Procedure: 05/26/2025 Surgeon: Harrison Ramírez MD Preoperative Diagnosis: Tender reducible right inguinal hernia. Postoperative Diagnosis: Tender reducible right inguinal hernia. Procedure: Laparoscopic repair of tender reducible right inguinal hernia with mesh. Estimated Blood Loss: Less than 10 cc. Specimen: None. Findings: Right inguinal hernia. Anesthesia: General plus local. Complications: None. Indications: This is a case of a male, who came to us with a reducible tender right inguinal hernia. The benefits, alternatives, and risks of laparoscopic possible open repair of the right inguinal he rnia with mesh fully explained, which include, but not limited to, infection, bleeding, damage to adj acent structures, anesthesia complication, recurrence, chronic pain, chronic numbness, CO, and even d eath. He also understands this may not relieve any symptoms, he might need more than one surgical in tervention. He understood we may be using mesh in that region. So, pros and cons of mesh placement were discussed with the patient, and all the questions were answered to his satisfaction. Signed a c onsent. Description Of Procedure: The patient was brought to the operating room, placed in supine position. Anesthesia was induced without complication. Right femoral region was prepped and draped in a steri le fashion. Local anesthesia was applied followed by sharp incision of the skin in the infraumbilica l region. Incision was carried down until we found the anterior rectus sheath. We opened the anteri or rectus sheath and moved the muscle laterally to expose the posterior rectus sheath. The extraperi toneal space was gently developed with the help of blunt dissection and a balloon tipped trocar was p laced in that area directed towards the pubic symphysis. A laparoscope was then introduced and the b alloon was inflated under direct visualization to create the extraperitoneal space. The balloon then was deflated. The balloon was removed and then we insufflated the area, put the cameras back again. At that moment, under direct visualization, we put a 5 mm trocar just about the pubis symphysis and another one between first and the second one. The preperitoneal space was further developed by expo sing the inferior epigastric vessels keeping them anterior. The Christopher ligament was dissected latera lly to a junction with the iliac veins and the dissection continued inferiorly to the iliopubic tract avoiding injury to the femoral branch of the genitofemoral nerve and the lateral femoral cutaneous n erve. The cord structures were carefully skeletonized. The hernia sac was identified and reduced by gentle traction into the peritoneal cavity. At this moment, we proceeded to introduce a 3D mesh ove r the working site into the trocar on the periumbilical region. The mesh was placed in a way to cove r direct/indirect spaces. The mesh was secured in place with absorbable tackers lateral and superior to the iliopubic tract and inferior and medial to the Christopehr's ligament. After ensuring adequate he mostasis, we then proceeded to let the insufflation escape while the mesh was held in place in gentle position. The trocars were removed. The anterior rectus sheath was closed with #1 Vicryl and the s kin was approximated with the Monocryl. Sterile dressings were placed over the area. Sponge counts and instrument counts were correct. The patient tolerated the procedure well. The patient on his wa y to recovery in stable condition. TEJAS/STEVE Voice ID: [id number] Report ID: [id number]
--- NOTE | 2025-05-27 10:58 | DS ---
Date of Discharge: 05/26/2025 Diagnosis: Tender reducible right inguinal hernia. Procedure: Laparoscopic repair of tender reducible right inguinal hernia with mesh. Condition: Stable. Disposition: Home. Activity: As tolerated. No heavy lifting. Discharge Instructions: Followup in my office in 1 week. Call for appointment at [phone]. Keep ar ea dry for 48 hours, then may shower. Cold compresses to the right inguinal region for 24 hours. TEJAS/STEVE Voice ID: [id number] Report ID: [id number]
== END 2025-05-26 16:53 | disposition home or self-care (01) ==
LOC: OR 10:10
PROVIDERS: ATTEND Surgery
PROC: 0YU54JZ Supplement Right Inguinal Region with Synthetic Substitute, Percutaneous Endoscopic Approach (ICD-10-PCS; principal; 2025-05-26 14:15)
DX: K40.90 Unilateral inguinal hernia, without obstruction or gangrene, not specified as recurrent (principal)
CPT/HCPCS: J0690; J1100; J2003; J2250; J2405; J2704; J2710; J3010; J7120